=== PATIENT | female | born 1945 | race Caucasian/White ===

== ENCOUNTER 2017-02-02 14:52 | Inpatient (IN) | payer MEDICARE ==
[2017-02-02] MEDS ORDERED: Ondansetron 4 MG Tab.DIS PO ONE (15:29)
[2017-02-02] MEDS ORDERED: HYDROmorphone 1 MG/ML Syringe IM ONE (15:30)
--- NOTE | 2017-02-02 15:58 | EDM.PDOC ---
ED HPI GENERAL MEDICAL PROBLEM - General Chief Complaint: Lower Extremity Injury/Pain Stated Complaint: LT LEG PAIN Time Seen by Provider: 02/02/17 15:20 Source of Information: Reports: Patient, Family History Limitations: Reports: No Limitations - History of Present Illness INITIAL COMMENTS - FREE TEXT/NARRATIVE: Patient presents with complaints of left hip pain. She reports fall from standing after tripping on a cord and landing on her left side on concrete two weeks ago. She reports use of walker or cane to assist with ambulation. Onset Date: 01/19/17 Duration: Week(s): Location: Reports: Other (left hip) Quality: Reports: Ache, Throbbing Severity: Severe Improves with: Reports: Medication, Other (Has tried use of felxeril and naproxen with minimal relief. 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: Musculoskeletal History: Reports: Fracture - Past Surgical History Neurological Surgical History: Reports: C-Spine, Laminectomy, Lumbar Spine Social & Family History - Tobacco Use Smoking Status *Q: Former Smoker Used Tobacco, but Quit: Yes Month Tobacco Last Used: 4 years ago - Caffeine Use Caffeine Use: Reports: Coffee - Recreational Drug Use Recreational Drug Use: No Review of Systems - Review of Systems Review Of Systems: See Below Constitutional: Denies: Chills, Fever, Weakness Eyes: Reports: No Symptoms Ears: Reports: No Symptoms Nose: Reports: No Symptoms Mouth/Throat: Reports: No Symptoms Respiratory: Denies: Shortness of Breath, Wheezing, Cough Cardiovascular: Denies: Chest Pain, Edema, Lightheadedness, Palpitations, Syncope GI/Abdominal: Reports: No Symptoms Genitourinary: Reports: No Symptoms Musculoskeletal: Reports: Joint Pain, Other (Left hip pain, decreased range of motion. ). Denies: Joint Swelling Skin: Reports: No Symptoms Neurological: Denies: Confusion, Headache, Numbness, Tingling, Weakness Psychiatric: Reports: No Symptoms ED EXAM, GENERAL - Physical Exam Exam: See Below Free Text/Narrative:: Thea is an alert, oriented and pleasant 71 year old female presenting with left hip pain. She reports a fall onto concrete from standing two weeks ago after tripping on a cord. She reports she has used a walker or cane to assist with ambulation since fall and developed significant worsening of pain today. Use of naproxen and flexeril help minimally. Exam Limited By: No Limitations General Appearance: Alert, WD/WN, No Apparent Distress Eye Exam: Bilateral Eye: EOMI, PERRL Ears: Normal External Exam, Normal Canal, Hearing Grossly Normal, Normal TMs Ear Exam: Bilateral Ear: Auricle Normal, Canal Normal, TM normal Nose: Normal Inspection, Normal Mucosa, No Blood Throat/Mouth: Normal Inspection, Normal Lips, Normal Oropharynx, Normal Voice, No Airway Compromise Head: Atraumatic, Normocephalic Neck: Normal Inspection, Supple, Non-Tender, Full Range of Motion. No: Lymphadenopathy (R), Lymphadenopathy (L) Respiratory/Chest: No Respiratory Distress, Lungs Clear, Normal Breath Sounds, No Accessory Muscle Use, Chest Non-Tender Cardiovascular: Normal Peripheral Pulses, Regular Rate, Rhythm, No Edema, No Murmur, No Rub Peripheral Pulses: 2+: Radial (L), Radial (R), Dorsalis Pedis (L), Dorsalis Pedis (R) GI/Abdominal: Normal Bowel Sounds, Soft, Non-Tender, No Distention, No Abnormal Bruit Back Exam: Normal Inspection, Full Range of Motion. No: CVA Tenderness (R), CVA Tenderness (L) Extremities: No Pedal Edema, Normal Capillary Refill, Limited Range of Motion, Other (Pain to left hip with palpation or slight manipulation. No shortening of limb. ) Neurological: Alert, Oriented, CN II-XII Intact, Normal Cognition, Normal Reflexes, Other (Patient not able to ambulate, complete external or internal rotation of left hip without significant pain. ) Psychiatric: Normal Affect, Normal Mood Skin Exam: Warm, Dry, Intact, Normal Color, No Rash EKG INTERPRETATION EKG Date: 02/02/17 Time: 16:41 Rhythm: NSR P-Wave: Present QRS: Other (QRSD 120) ST-T: Other UT/PQ Interval: UT 140. QT429 Comparison: NA - No Prior EKG EKG Interpretation Comments: Sinus rhythm with incomplete left bundle branch block. Course - Vital Signs Last Recorded V/S: Last Vital Signs Temp 36.4 C 02/02/17 17:40 Pulse 87 02/02/17 17:40 Resp 16 02/02/17 17:40 BP 138/90 02/02/17 17:40 Pulse Ox 93 L 02/02/17 17:40 - Orders/Labs/Meds Orders: Active Orders 24 hr Category Date Time Status EKG Documentation Completion [RC] ASDIRECTED Care 02/02/17 16:14 Active EKG Documentation Completion [RC] ASDIRECTED Care 02/02/17 16:46 Inactive Pelvis wo Cont [CT] Stat Exams 02/02/17 15:32 Taken UA W/MICROSCOPIC [URIN] Stat Lab 02/02/17 16:46 Uncollected EKG 12 Lead [EK] Routine Ther 02/02/17 16:14 Stop Req EKG 12 Lead [EK] Stat Ther 02/02/17 16:46 Stop Req Medication Orders Acetaminophen (Tylenol) 650 mg PO Q4H PRN PRN Reason: Pain (Mild 1-3)/fever Acetaminophen (Tylenol) 650 mg RECTAL Q4H PRN PRN Reason: Pain (Mild 1-3)/fever Cyclobenzaprine HCl (Flexeril) 10 mg PO TID PRN PRN Reason: Muscle Spasm Docusate Sodium (Colace) 100 mg PO BID NARDA Docusate Sodium (Colace) 100 mg PO DAILY PRN PRN Reason: CONSTIPATION Hydromorphone HCl (Dilaudid) 0.5 mg IVPUSH Q2H PRN PRN Reason: Pain Last Admin: 02/02/17 18:49 Dose: 0.5 mg Lactated Ringer's (Ringers, Lactated) 1,000 mls @ 125 mls/hr IV ASDIRECTED NARDA Magnesium Hydroxide (Milk Of Magnesia) 30 ml PO Q12H PRN PRN Reason: Constipation Ondansetron HCl (Zofran) 4 mg IV Q4H PRN PRN Reason: Nausea/Vomiting Oxycodone HCl (Oxycodone) 5 mg PO Q4H PRN PRN Reason: Pain (moderate 4-6) Polyethylene Glycol (Miralax) 17 gm PO DAILY PRN PRN Reason: Constipation Sodium Chloride (Saline Flush) 10 ml FLUSH ASDIRECTED PRN PRN Reason: Keep Vein Open Meds: Medications Generic Name Dose Route Start Last Admin Trade Name Freq PRN Reason Stop Dose Admin Acetaminophen 650 mg 02/02/17 18:10 Tylenol PO Q4H PRN Pain (Mild 1-3)/fever Acetaminophen 650 mg 02/02/17 18:49 Tylenol RECTAL Q4H PRN Pain (Mild 1-3)/fever Cyclobenzaprine HCl 10 mg 02/02/17 18:10 Flexeril PO TID PRN Muscle Spasm Docusate Sodium 100 mg 02/02/17 21:00 Colace PO BID NARDA Docusate Sodium 100 mg 02/02/17 18:50 Colace PO DAILY PRN CONSTIPATION Hydromorphone HCl 0.5 mg 02/02/17 18:10 02/02/17 18:49 Dilaudid IVPUSH 0.5 mg Q2H PRN Administration Pain Lactated Ringer's 1,000 mls @ 125 mls/hr 02/02/17 18:10 Ringers, Lactated IV ASDIRECTED NARDA Magnesium Hydroxide 30 ml 02/02/17 18:10 Milk Of Magnesia PO Q12H PRN Constipation Ondansetron HCl 4 mg 02/02/17 18:10 Zofran IV Q4H PRN Nausea/Vomiting Oxycodone HCl 5 mg 02/02/17 18:10 Oxycodone PO Q4H PRN Pain (moderate 4-6) Polyethylene Glycol 17 gm 02/02/17 18:10 Miralax PO DAILY PRN Constipation Sodium Chloride 10 ml 02/02/17 18:10 Saline Flush FLUSH ASDIRECTED PRN Keep Vein Open Discontinued Medications Generic Name Dose Route Start Last Admin Trade Name Salma PRN Reason Stop Dose Admin Docusate Sodium 100 mg 02/02/17 18:10 Colace PO BID PRN Constipation Hydromorphone HCl 1 mg 02/02/17 15:30 02/02/17 15:37 Dilaudid IM 02/02/17 15:31 1 mg ONETIME ONE Administration Hydromorphone HCl 1 mg 02/02/17 16:15 02/02/17 16:45 Dilaudid IVPUSH 02/02/17 16:16 1 mg ONETIME ONE Administration Lactated Ringer's 1,000 mls @ 150 mls/hr 02/02/17 16:15 02/02/17 16:44 Ringers, Lactated IV 150 mls/hr ASDIRECTED NARDA Administration Ondansetron HCl 4 mg 02/02/17 15:29 02/02/17 15:36 Zofran Odt PO 02/02/17 15:30 4 mg ONETIME ONE Administration Sodium Chloride 10 ml 02/02/17 16:14 Saline Flush FLUSH ASDIRECTED PRN Keep Vein Open - Radiology Interpretation Free Text/Narrative:: Noted left - Re-Assessments/Exams Free Text/Narrative Re-Assessment/Exam: 02/02/17 16:23 Patient case discussed with Dr. Bo Hoyt. Patient will be admitted, surgical repair of left hip fracture tomorrow. She will be NPO after midnight tonight. Tramadol 100mg PO every 6 hours PRN pain. Morphine sulfate 1mg IV every 2 hours for break through pain. Non-weight bearing. Free Text/Narrative Re-Assessment/Exam: 02/02/17 16:[address] Deras of patient status. Free Text/Narrative Re-Assessment/Exam: 02/02/17 17:43 Report to Vannesa VAUGHAN, all questions answered. Patient to room 202. Departure - Departure Time of Disposition: 18:00 Disposition: Admitted As Inpatient 65 Clinical Impression: Fracture of neck of femur, hip - Discharge Information - My Orders Last 24 Hours: My Active Orders 02/02/17 15:32 Pelvis wo Cont [CT] Stat 02/02/17 16:14 EKG Documentation Completion [RC] ASDIRECTED EKG 12 Lead [EK] Routine - Assessment/Plan Last 24 Hours: My Active Orders 02/02/17 15:32 Pelvis wo Cont [CT] Stat 02/02/17 16:14 EKG Documentation Completion [RC] ASDIRECTED EKG 12 Lead [EK] Routine
[2017-02-02] MEDS ORDERED: Sodium Chloride 0.9% 10 ML Syringe FLUSH PRN ×2 (16:14→18:10)
[2017-02-02] MEDS ORDERED: Lactated Ringers 1,000 ML IV SCH (16:15)
[2017-02-02] MEDS ORDERED: HYDROmorphone 1 MG/ML Syringe IVPUSH ONE (16:15)
[2017-02-02] MEDS ORDERED: oxyCODONE 5 MG Tab PO PRN (18:10)
[2017-02-02] MEDS ORDERED: Polyethylene Glycol 3350 Powder 17 GM Packet PO PRN (18:10)
[2017-02-02] MEDS ORDERED: Docusate Sodium 100 MG Cap PO PRN ×2 (18:10→18:50)
[2017-02-02] MEDS ORDERED: Magnesium Hydroxide 400 MG/5 ML Susp 30 ML Cup PO PRN (18:10)
[2017-02-02] MEDS: HYDROmorphone 0.5 MG/0.5 ML Syringe IVPUSH PRN ×2 (18:49→23:12)
[2017-02-02] MEDS ORDERED: Acetaminophen 650 MG Supp RECTAL PRN (18:49)
[2017-02-02] MEDS ORDERED: Calcium Carbonate 500 MG Tab.Chew PO PRN (18:51)
[2017-02-02] MEDS ORDERED: Aluminum Hydroxide/Magnesium Hydroxide/Simethicone Susp 30 ML Cup PO PRN (18:51)
--- NOTE | 2017-02-02 21:19 | PCM.HP ---
H&P History of Present Illness - General Admit Problem/Dx: Admission Diagnosis/Problem Admission Diagnosis/Problem Hip fracture requiring operative repair Source of Information: Patient History Limitations: Reports: No Limitations - History of Present Illness Initial Comments - Free Text/Narative: Thea is an alert, oriented and pleasant 71 year old female presenting with left hip pain. She reports a fall onto concrete from standing two weeks ago after tripping on a cord. She reports she has used a walker or cane to assist with ambulation since fall and developed significant worsening of pain today. Use of naproxen and flexeril help minimally. CT abdomen Pelvis; fracture of neck of femur, hip Patient case discussed with Dr. Bo Hoyt. Patient will be admitted, surgical repair of left hip fracture tomorrow. She will be NPO after midnight tonight. Tramadol 100mg PO every 6 hours PRN pain. Morphine sulfate 1mg IV every 2 hours for break through pain. Non-weight bearing. Onset of Symptoms: Reports: Sudden, Gradual (2 weeks since fall with worsen leg/ pelvis pain) Duration of Symptoms: Reports: Day(s): (worse left hip pain today), Week(s): (2 weeks ago) Location: Reports: Pelvis (left hip), Lower Extremity, Left Quality: Reports: Sharp, Stabbing Severity: Severe Improves with: Reports: Rest Worsens with: Reports: Movement Context: Reports: Trauma (fall ) Associated Symptoms: Reports: Other (not sleeping well since injury. 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: Musculoskeletal History: Reports: Fracture - Past Surgical History Neurological Surgical History: Reports: C-Spine, Laminectomy, Lumbar Spine Social & Family History - Family History Family Medical History: Noncontributory - Tobacco Use Smoking Status *Q: Former Smoker Years of Tobacco use: 50 Used Tobacco, but Quit: Yes Month Tobacco Last Used: 4 years ago Second Hand Smoke Exposure: Yes - Caffeine Use Caffeine Use: Reports: Coffee Caffeine Use Comment: 1-1.5 cups/day - Alcohol Use Days Per Week of Alcohol Use: 7 Number of Drinks Per Day: 2 Total Drinks Per Week: 14 Date of Last Drink: 01/30/17 Time of Last Drink: 20:00 - Recreational Drug Use Recreational Drug Use: No H&P Review of Systems - Review of Systems: Review Of Systems: See Below General: Reports: Fatigue, Other (left hip and leg leg pain) HEENT: Reports: No Symptoms Pulmonary: Reports: No Symptoms Cardiovascular: Reports: No Symptoms Gastrointestinal: Reports: No Symptoms Genitourinary: Reports: No Symptoms Musculoskeletal: Reports: Back Pain (chronic back pain), Leg Pain (left) Skin: Reports: No Symptoms Psychiatric: Reports: No Symptoms Neurological: Reports: No Symptoms Hematologic/Lymphatic: Reports: No Symptoms Immunologic: Reports: No Symptoms Exam - Exam Exam: See Below - Vital Signs Vital Signs: Last Vital Signs Temp 36.6 C 02/02/17 19:00 Pulse 75 02/02/17 19:00 Resp 16 02/02/17 19:00 BP 124/75 02/02/17 19:00 Pulse Ox 97 02/02/17 19:00 Weight: 61.235 kg - Exam General: Alert, Oriented, Cooperative HEENT: PERRLA, Hearing Intact, Mucosa Moist & [place], Nares Patent, Normal Nasal Septum, Posterior Pharynx Clear, Conjunctiva Clear, EOMI, EACs Clear, TMs Clear Neck: Supple, Trachea Midline, 2 Lungs: Clear to Auscultation, Normal Respiratory Effort Cardiovascular: Regular Rate, Regular Rhythm GI/Abdominal Exam: Normal Bowel Sounds, Soft, Tender (left side of abdomen and pelvis), Other (left lower pelvis pain) (Female) Exam: Deferred Rectal (Female) Exam: Deferred Back Exam: Normal Inspection, Other (chronic low back pain) Extremities: No Pedal Edema, Normal Capillary Refill, Leg Pain (left), Limited Range of Motion (left leg due to hip fracture) Peripheral Pulses: 2+: Dorsalis Pedis (L), Dorsalis Pedis (R) Skin: Warm, Dry, Intact Neurological: Strength Equal Bilateral, Normal Speech, Normal Tone Neuro Extensive - Mental Status: Alert, Oriented x3, Normal Mood/Affect, Normal Cognition, Memory Intact Psychiatric: Alert, Normal Affect, Normal Mood - Patient Data Lab Results Last 24 hrs: Laboratory Results - last 24 hr 0802/02/17 02/02/17 Range/Units 16:51 16:51 16:51 WBC 8.7 (4.5-11.0) K/uL RBC 4.59 (3.30-5.50) M/uL Hgb 13.7 (12.0-15.0) g/dL Hct 39.9 (36.0-48.0) % MCV 87 (80-98) fL MCH 30 (27-31) pg MCHC 34 (32-36) % Plt Count 386 (150-400) K/uL Neut % (Auto) 67 H (36-66) % Lymph % (Auto) 20 L (24-44) % [place] % (Auto) 11 H (2-6) % Eos % (Auto) 1 L (2-4) % Baso % (Auto) 1 (0-1) % Sodium 141 (140-148) mmol/L Potassium 3.6 (3.6-5.2) mmol/L Chloride 106 (100-108) mmol/L Carbon Dioxide 25 (21-32) mmol/L Anion Gap 10.1 (5.0-14.0) mmol/L BUN 11 (7-18) mg/dL Creatinine 0.8 (0.6-1.0) mg/dL Est Cr Clr Drug Dosing 54.89 mL/min Estimated GFR (MDRD) > 60 (>60) Glucose 91 (74-106) mg/dL Calcium 8.9 (8.5-10.1) mg/dL Magnesium 2.0 (1.8-2.4) mg/dL Total Bilirubin 0.4 (0.2-1.0) mg/dL AST 15 (15-37) U/L ALT 18 (12-78) U/L Alkaline Phosphatase 60 (46-116) U/L Total Protein 7.0 (6.4-8.2) g/dL Albumin 3.8 (3.4-5.0) g/dL Globulin 3.2 (2.3-3.5) g/dL Albumin/Globulin Ratio 1.2 (1.2-2.2) Urine Color Urine Appearance Urine pH (4.5-8.0) Ur Specific [place] (1.008-1.030) Urine Protein (NEGATIVE) mg/dL Urine Glucose (UA) (NEGATIVE) mg/dL Urine Ketones (NEGATIVE) mg/dL Urine Occult Blood (NEGATIVE) Urine Nitrite (NEGATIVE) Urine Bilirubin (NEGATIVE) Urine Urobilinogen (NORMAL) mg/dL Ur Leukocyte Esterase (NEGATIVE) Urine RBC (0-5) Urine WBC (0-5) Ur Epithelial Cells Amorphous Sediment Urine Bacteria Urine Mucus 02/02/17 Range/Units 19:21 WBC (4.5-11.0) K/uL RBC (3.30-5.50) M/uL Hgb (12.0-15.0) g/dL Hct (36.0-48.0) % MCV (80-98) fL MCH (27-31) pg MCHC (32-36) % Plt Count (150-400) K/uL Neut % (Auto) (36-66) % Lymph % (Auto) (24-44) % [place] % (Auto) (2-6) % Eos % (Auto) (2-4) % Baso % (Auto) (0-1) % Sodium (140-148) mmol/L Potassium (3.6-5.2) mmol/L Chloride (100-108) mmol/L Carbon Dioxide (21-32) mmol/L Anion Gap (5.0-14.0) mmol/L BUN (7-18) mg/dL Creatinine (0.6-1.0) mg/dL Est Cr Clr Drug Dosing mL/min Estimated GFR (MDRD) (>60) Glucose (74-106) mg/dL Calcium (8.5-10.1) mg/dL Magnesium (1.8-2.4) mg/dL Total Bilirubin (0.2-1.0) mg/dL AST (15-37) U/L ALT (12-78) U/L Alkaline Phosphatase (46-116) U/L Total Protein (6.4-8.2) g/dL Albumin (3.4-5.0) g/dL Globulin (2.3-3.5) g/dL Albumin/Globulin Ratio (1.2-2.2) Urine Color Yellow Urine Appearance Clear Urine pH 6.5 (4.5-8.0) Ur Specific [place] 1.010 (1.008-1.030) Urine Protein Negative (NEGATIVE) mg/dL Urine Glucose (UA) Normal (NEGATIVE) mg/dL Urine Ketones 50 H (NEGATIVE) mg/dL Urine Occult Blood Negative (NEGATIVE) Urine Nitrite Negative (NEGATIVE) Urine Bilirubin Negative (NEGATIVE) Urine Urobilinogen Normal (NORMAL) mg/dL Ur Leukocyte Esterase Negative (NEGATIVE) Urine RBC 0-5 (0-5) Urine WBC 0-5 (0-5) Ur Epithelial Cells Few Amorphous Sediment Not seen Urine Bacteria Not seen Urine Mucus Not seen Result Diagrams: 02/02/17 16:51 02/02/17 16:51 *Q Meaningful Use (ADM) - VTE *Q VTE Criteria *Q: VTE Pharmacological Contraindications *Q: Patient Scheduled Surgery - Stroke *Q Stroke Criteria *Q: - AMI *Q AMI Criteria *Q: - Problem List (1) Fracture of neck of femur, hip SNOMED Code(s): 9433913 ICD Code: S72.009A - FRACTURE OF UNSP PART OF NECK OF UNSP FEMUR, INIT Status: Acute Priority: High Current Visit: Yes Problem List Initiated/Reviewed/Updated: Yes Orders Last 24hrs: Active Orders 24 hr Category Date Time Status Patient Status [ADT] Routine ADT 02/02/17 18:10 Active Bedrest Bedside Commode [RC] ASDIRECTED Care 02/02/17 18:10 Active Intake and Output [RC] QSHIFT Care 02/02/17 18:10 Active Notify Provider Consults [RC] ASDIRECTED Care 02/02/17 18:10 Active Notify Provider Vital Signs [RC] ASDIRECTED Care 02/02/17 18:10 Active Oxygen Therapy [RC] PRN Care 02/02/17 18:10 Active Peripheral IV Care [RC] Q12H Care 02/02/17 18:10 Active VTE/DVT Education [RC] Per Unit Routine Care 02/02/17 18:10 Active Vital Signs [RC] Q4H Care 02/02/17 18:10 Active Consult to Physician [CONS] Routine Cons 02/02/17 18:10 Ordered Nothing per Oral After Midnight Diet [DIET] Diet 02/03/17 Breakfast Active Regular Diet [DIET] Diet 02/02/17 Dinner Active Acetaminophen [Tylenol] Med 02/02/17 18:10 Active 650 mg PO Q4H PRN Acetaminophen [Tylenol] Med 02/02/17 18:49 Active 650 mg RECTAL Q4H PRN Alum Hydrox/Mag Hydrox/Simeth [Mag-Al Plus] Med 02/02/17 18:51 Active 30 ml PO Q4H PRN Calcium Carbonate [Tums] Med 02/02/17 18:51 Active 500 - 1,000 mg PO Q4H PRN Docusate Sodium [Colace] Med 02/02/17 21:00 Active 100 mg PO BID Docusate Sodium [Colace] Med 02/02/17 18:50 Active 100 mg PO DAILY PRN HYDROmorphone [Dilaudid] Med 02/02/17 18:10 Active 0.5 mg IVPUSH Q2H PRN Lactated Ringers [Ringers, Lactated] 1,000 ml Med 02/02/17 18:10 Active IV ASDIRECTED Magnesium Hydroxide [Milk of Magnesia] Med 02/02/17 18:10 Active 30 ml PO Q12H PRN Morphine Med 02/02/17 18:53 Active 1 mg IV Q2H PRN Ondansetron [Zofran] Med 02/02/17 18:10 Active 4 mg IV Q4H PRN Polyethylene Glycol 3350 [MiraLAX] Med 02/02/17 18:10 Active 17 gm PO DAILY PRN Sodium Chloride 0.9% [Saline Flush] Med 02/02/17 18:10 Active 10 ml FLUSH ASDIRECTED PRN oxyCODONE Med 02/02/17 18:10 Active 5 mg PO Q4H PRN traMADol [Ultram] Med 02/02/17 18:52 Active 100 mg PO Q6H PRN Peripheral IV Insertion Adult [OM.PC] Routine Oth 02/02/17 18:10 Ordered Sequential Compression Device [OM.PC] Per Unit Routine Oth 02/02/17 18:10 Ordered VTE Pharmacological Contraindications [AST] Per Unit Oth 02/02/17 18:10 Ordered Routine Resuscitation Status Routine Resus Stat 02/02/17 16:49 Ordered Medication Orders Acetaminophen (Tylenol) 650 mg PO Q4H PRN PRN Reason: Pain (Mild 1-3)/fever Acetaminophen (Tylenol) 650 mg RECTAL Q4H PRN PRN Reason: Pain (Mild 1-3)/fever Al Hydroxide/Mg Hydroxide (Mag-Al Plus) 30 ml PO Q4H PRN PRN Reason: DYSPEPSIA Calcium Carbonate/Glycine (Tums) 500 - 1,000 mg PO Q4H PRN PRN Reason: DYSPEPSIA Cyclobenzaprine HCl (Flexeril) 10 mg PO TID PRN PRN Reason: Muscle Spasm Docusate Sodium (Colace) 100 mg PO BID NARDA Docusate Sodium (Colace) 100 mg PO DAILY PRN PRN Reason: CONSTIPATION Hydromorphone HCl (Dilaudid) 0.5 mg IVPUSH Q2H PRN PRN Reason: Pain Last Admin: 02/02/17 18:49 Dose: 0.5 mg Lactated Ringer's (Ringers, Lactated) 1,000 mls @ 125 mls/hr IV ASDIRECTED NARDA Magnesium Hydroxide (Milk Of Magnesia) 30 ml PO Q12H PRN PRN Reason: Constipation Morphine Sulfate (Morphine) 1 mg IV Q2H PRN PRN Reason: BREAKTHROUGH PAIN Ondansetron HCl (Zofran) 4 mg IV Q4H PRN PRN Reason: Nausea/Vomiting Oxycodone HCl (Oxycodone) 5 mg PO Q4H PRN PRN Reason: Pain (moderate 4-6) Polyethylene Glycol (Miralax) 17 gm PO DAILY PRN PRN Reason: Constipation Sodium Chloride (Saline Flush) 10 ml FLUSH ASDIRECTED PRN PRN Reason: Keep Vein Open Tramadol HCl (Ultram) 100 mg PO Q6H PRN PRN Reason: PAIN Assessment/Plan Comment:: ASSSESSMENT / PLAN Thea is an alert, oriented and pleasant 71 year old female presenting with left hip pain. She reports a fall onto concrete from standing two weeks ago after tripping on a cord. She reports she has used a walker or cane to assist with ambulation since fall and developed significant worsening of pain today. Use of naproxen and flexeril help minimally. CT abdomen Pelvis; fracture of neck of femur, hip Patient case discussed with Dr. Bo Hoyt. Patient will be admitted, surgical repair of left hip fracture tomorrow. Plan: Fracture of Neck of femur; left hip -Admit to [address] [place] [address] -IV Fluids for rehydration LR at 125 mL per hour -Advise to notify nurses of any pain or other symptoms -NPO after midnight tonight. -medication ordered for pain control -bedrest; Non-weight bearing. -Surgery scheduled in am. Maintenance issues -Orders home meds: -Nutrition: regular diet, NPO after midnight -Dolan catheter not indicated at this time -DVT: SCD -PPI; IV Protonix 40mg daily -consult OT for discharge planning -consult PT for post-op orthopedic left hip fracture with surgical repair. CODE STATUS: FULL CODE Admission status: Admit to [address] [place] [address] Admission justification. This patient will be admitted for inpatient services and is medically appropriate meeting medical necessity for inpatient admission as outlined in my documentation. I reasonably expect the patient will require inpatient services that span. Time over 2 midnights. I reasonably expect this patient to be discharged or transferred within 96 hours after admission to the [facility]. Disposition; home Primary care provider: not established Surgeon; Dr. Blayne Hoyt Hospitalist: Dr. Deras
[2017-02-02] MEDS: Docusate Sodium 100 MG Cap PO SCH ×2 (21:40→23:12)
[2017-02-03] MEDS: Lactated Ringers 1,000 ML IV SCH ×3 (01:06→19:30)
[2017-02-03] MEDS: HYDROmorphone 0.5 MG/0.5 ML Syringe IVPUSH PRN ×2 (03:43→14:15)
[2017-02-03] MEDS: Morphine 2 MG/ML Syringe IV PRN ×3 (05:43→15:03)
[2017-02-03] MEDS ORDERED: Povidone-Iodine 10% Soln 118.25 ML Bottle ONE ×2 (09:32→09:33)
[2017-02-03] MEDS ORDERED: Bupivacaine 0.5%/EPINEPHrine 1:200,000 50 ML MDV ONE (09:32)
[2017-02-03] MEDS ORDERED: Gentamicin 40 MG/ML 2 ML Vial ONE (09:32)
--- NOTE | 2017-02-03 09:33 | PCM.CONS ---
H&P History of Present Illness - General Admit Problem/Dx: Admission Diagnosis/Problem healthy 71 yo female tripped on cord two weeks ago fell on cement. increasing pain with ambulation. started to ambulate with cane. used flexeril but did not help. no prior injury to left hip. Source of Information: Patient, Provider History Limitations: Reports: No Limitations - History of Present Illness Onset of Symptoms: Reports: Gradual Duration of Symptoms: Reports: Week(s): Location: Reports: Lower Extremity, Left Quality: Reports: Burning, Stabbing, Throbbing Improves with: Reports: Immobilization Worsens with: Reports: Movement Associated Symptoms: Reports: No Other Symptoms Left Leg Pain Score (Numeric/FACES): 5 - Related Data Allergies/Adverse Reactions: Allergies Allergy/AdvReac Type Severity Reaction Status Date / Time No Known Allergies Allergy Verified 02/02/17 15:20 Home Medications: Home Meds Cyclobenzaprine [Flexeril] 10 mg PO TID PRN 02/02/17 [History] Past Medical History [employer] History: Reports: Musculoskeletal History: Reports: Fracture - Past Surgical History Neurological Surgical History: Reports: C-Spine, Laminectomy, Lumbar Spine Social & Family History - Family History Family Medical History: Noncontributory - Tobacco Use Smoking Status *Q: Former Smoker Years of Tobacco use: 50 Used Tobacco, but Quit: Yes Month Tobacco Last Used: 4 years ago Second Hand Smoke Exposure: Yes - Caffeine Use Caffeine Use: Reports: Coffee Caffeine Use Comment: 1-1.5 cups/day - Alcohol Use Days Per Week of Alcohol Use: 7 Number of Drinks Per Day: 2 Total Drinks Per Week: 14 Date of Last Drink: 01/30/17 Time of Last Drink: 20:00 - Recreational Drug Use Recreational Drug Use: No H&P Review of Systems - Review of Systems: Review Of Systems: See Below General: Reports: No Symptoms HEENT: Reports: No Symptoms Pulmonary: Reports: No Symptoms Cardiovascular: Reports: No Symptoms Gastrointestinal: Reports: No Symptoms Genitourinary: Reports: No Symptoms Musculoskeletal: Reports: Leg Pain, Joint Pain Skin: Reports: No Symptoms Psychiatric: Reports: No Symptoms Neurological: Reports: No Symptoms Hematologic/Lymphatic: Reports: No Symptoms Immunologic: Reports: No Symptoms Exam - Exam Exam: See Below - Vital Signs Vital Signs: Last Vital Signs Temp 98.2 F 02/03/17 07:53 Pulse 70 02/03/17 07:53 Resp 16 02/03/17 07:53 BP 118/68 02/03/17 07:53 Pulse Ox 96 02/03/17 07:53 Weight: 135 lb - Exam General: Alert, Oriented HEENT: PERRLA, Conjunctiva Clear, EACs Clear, EOMI, Hearing Intact, Mucosa Moist & [place], Pupils Equal, Pupils Reactive Neck: Supple, Trachea Midline Extremities: No Pedal Edema, Normal Capillary Refill, Leg Pain, Limited Range of Motion Peripheral Pulses: 2+: Dorsalis Pedis (L), Dorsalis Pedis (R) Skin: Warm, Dry, Intact Neurological: Cranial Nerves Intact Neuro Extensive - Mental Status: Alert, Oriented x3, Normal Mood/Affect, Normal Cognition, Memory Intact Psychiatric: Alert, Normal Affect, Normal Mood Physical Exam Comments:: LLE: skin warm, dry intact. [employer] MECH[employer]IC<2s. Pulses 2/4. Compartments soft. motor and sensory exam grossly intact distally. good rom of ankle. pain with hip/knee rom in left hip. - Patient Data Lab Results Last 24 hrs: Laboratory Results - last 24 hr 02/02/17 02/02/17 02/02/17 Range/Units 16:51 16:51 16:51 WBC 8.7 (4.5-11.0) K/uL RBC 4.59 (3.30-5.50) M/uL Hgb 13.7 (12.0-15.0) g/dL Hct 39.9 (36.0-48.0) % MCV 87 (80-98) fL MCH 30 (27-31) pg MCHC 34 (32-36) % Plt Count 386 (150-400) K/uL Neut % (Auto) 67 H (36-66) % Lymph % (Auto) 20 L (24-44) % Miller % (Auto) 11 H (2-6) % Eos % (Auto) 1 L (2-4) % Baso % (Auto) 1 (0-1) % Sodium 141 (140-148) mmol/L Potassium 3.6 (3.6-5.2) mmol/L Chloride 106 (100-108) mmol/L Carbon Dioxide 25 (21-32) mmol/L Anion Gap 10.1 (5.0-14.0) mmol/L BUN 11 (7-18) mg/dL Creatinine 0.8 (0.6-1.0) mg/dL Est Cr Clr Drug Dosing 54.89 mL/min Estimated GFR (MDRD) > 60 (>60) Glucose 91 (74-106) mg/dL Calcium 8.9 (8.5-10.1) mg/dL Magnesium 2.0 (1.8-2.4) mg/dL Total Bilirubin 0.4 (0.2-1.0) mg/dL AST 15 (15-37) U/L ALT 18 (12-78) U/L Alkaline Phosphatase 60 (46-116) U/L Total Protein 7.0 (6.4-8.2) g/dL Albumin 3.8 (3.4-5.0) g/dL Globulin 3.2 (2.3-3.5) g/dL Albumin/Globulin Ratio 1.2 (1.2-2.2) Urine Color Urine Appearance Urine pH (4.5-8.0) Ur Specific [place] (1.008-1.030) Urine Protein (NEGATIVE) mg/dL Urine Glucose (UA) (NEGATIVE) mg/dL Urine Ketones (NEGATIVE) mg/dL Urine Occult Blood (NEGATIVE) Urine Nitrite (NEGATIVE) Urine Bilirubin (NEGATIVE) Urine Urobilinogen (NORMAL) mg/dL Ur Leukocyte Esterase (NEGATIVE) Urine RBC (0-5) Urine WBC (0-5) Ur Epithelial Cells Amorphous Sediment Urine Bacteria Urine Mucus 02/02/17 Range/Units 19:21 WBC (4.5-11.0) K/uL RBC (3.30-5.50) M/uL Hgb (12.0-15.0) g/dL Hct (36.0-48.0) % MCV (80-98) fL MCH (27-31) pg MCHC (32-36) % Plt Count (150-400) K/uL Neut % (Auto) (36-66) % Lymph % (Auto) (24-44) % Miller % (Auto) (2-6) % Eos % (Auto) (2-4) % Baso % (Auto) (0-1) % Sodium (140-148) mmol/L Potassium (3.6-5.2) mmol/L Chloride (100-108) mmol/L Carbon Dioxide (21-32) mmol/L Anion Gap (5.0-14.0) mmol/L BUN (7-18) mg/dL Creatinine (0.6-1.0) mg/dL Est Cr Clr Drug Dosing mL/min Estimated GFR (MDRD) (>60) Glucose (74-106) mg/dL Calcium (8.5-10.1) mg/dL Magnesium (1.8-2.4) mg/dL Total Bilirubin (0.2-1.0) mg/dL AST (15-37) U/L ALT (12-78) U/L Alkaline Phosphatase (46-116) U/L Total Protein (6.4-8.2) g/dL Albumin (3.4-5.0) g/dL Globulin (2.3-3.5) g/dL Albumin/Globulin Ratio (1.2-2.2) Urine Color Yellow Urine Appearance Clear Urine pH 6.5 (4.5-8.0) Ur Specific [place] 1.010 (1.008-1.030) Urine Protein Negative (NEGATIVE) mg/dL Urine Glucose (UA) Normal (NEGATIVE) mg/dL Urine Ketones 50 H (NEGATIVE) mg/dL Urine Occult Blood Negative (NEGATIVE) Urine Nitrite Negative (NEGATIVE) Urine Bilirubin Negative (NEGATIVE) Urine Urobilinogen Normal (NORMAL) mg/dL Ur Leukocyte Esterase Negative (NEGATIVE) Urine RBC 0-5 (0-5) Urine WBC 0-5 (0-5) Ur Epithelial Cells Few Amorphous Sediment Not seen Urine Bacteria Not seen Urine Mucus Not seen Result Diagrams: 02/02/17 16:51 02/02/17 16:51 Consult PN Assessment/Plan Problem List Initiated/Reviewed/Updated: Yes My Orders Last 24 Hours: My Active Orders 02/02/17 18:51 Alum Hydrox/Mag Hydrox/Simeth [Mag-Al Plus] 30 ml PO Q4H PRN Calcium Carbonate [Tums] 500 - 1,000 mg PO Q4H PRN 02/02/17 18:52 traMADol [Ultram] 100 mg PO Q6H PRN 02/02/17 18:53 Morphine 1 mg IV Q2H PRN 02/03/17 10:00 ceFAZolin [Ancef] 1 gm Premix Bag 1 bag IV ONETIME Plan: imaging: CT pelvis shows left hip subcapital impacted fracture. A: 71 yo female left femoral neck fracture, closed P: To OR 10 am 02/03 for left hip hemiarthroplasty. Risks and benefits discussed with patient. Informed consent obtained. 3 week follow up in clinic for staple removal. ambulate as tolerated.
[2017-02-03] MEDS ORDERED: fentaNYL 100 MCG/2 ML SDV ONE (09:35)
[2017-02-03] MEDS ORDERED: Midazolam 1 MG/ML 2 ML SDV ONE ×2 (09:35→10:37)
[2017-02-03] MEDS ORDERED: Propofol 200 MG/20 ML SDV ONE ×2 (09:35→11:44)
[2017-02-03] MEDS: ceFAZolin 1 GM in Premix Bag 1 BAG IV ONE ×2 (10:30→13:12)
[2017-02-03] MEDS: Docusate Sodium 100 MG Cap PO SCH ×2 (13:26→20:56)
--- NOTE | 2017-02-03 13:28 | OR ---
DATE OF PROCEDURE: 02/03/2017 PREOPERATIVE DIAGNOSIS: Left hip subcapital femoral neck fracture. POSTOPERATIVE DIAGNOSES: 1. Left hip subcapital femoral neck fracture. 2. Left hip osteoarthritis. ANESTHESIA: Spinal plus conscious sedation. FLUID: Lactated Ringer solution. ESTIMATED BLOOD LOSS: 100 mL. COMPLICATIONS: None. SPECIMEN: None. DISCHARGE DISPOSITION: Stable to PACU. INSTRUMENTATION: Biomet G7 acetabular shell, 48 mm liner size C with 25 mm x 6.5 mm and 15 mm x 6.5 mm screws, 32 mm G7 acetabular liner size C with E1 Antioxidant, a 12 x 144 mm standard offset type 1 taper, cementless porous-coated femoral stem, and Biolox option taper adapter +3 neck and Biolox Delta option ceramic head 32 mm with a 16 to 18 taper. INDICATIONS FOR THE PROCEDURE: The patient was seen yesterday in the ER. She had been having pain for two weeks after tripping over a cord. She was found to have a left subcapital femoral neck fracture on CT. She was then admitted to the hospitalist service. I spoke with her this morning. Risks and benefits of the procedure were explained to the patient, and informed consent was obtained. PROCEDURE: Left total hip arthroplasty. DETAILS OF PROCEDURE: The patient was seen in the hospital. Her operative site was marked. She was brought to the operative suite by Anesthesia staff where spinal anesthesia was administered. She was placed in a right lateral recumbent position on a pegboard with an axillary roll. All extremities found to be well padded. The right lower extremity was then prepped and draped in a sterile manner. Time-out was called identifying the correct patient, correct procedure, the correct site, and antibiotics had been with appropriate period of time. An incision was made approximately 7 cm proximal to the greater trochanter down about 5 cm distal to the level of the lesser trochanter and carried down to the deep fascia. Bleeding was controlled with Bovie electrocautery. Cerebellar were used for retraction. The deep fascia was incised with the Bovie electrocautery unit and the IT band was felt to be quite tight. I then used a Bovie electrocautery for the dissection down over the lesser trochanter and then preserving a cuff of tendon of the gluteus minimus and inferior portion of gluteus medius back to the greater trochanter. I then tried to dislocate the hip but the fracture was intact, so I made 2 saw cuts, removed a part of the neck, and then using a corkscrew removed the remainder of the head, which measured 43 mm. I then placed some deep retractors and visualized the acetabulum. It was obvious to me that there was a significant acetabular wear as well as a defect where the fovea was. So, I elected to proceed with total hip arthroplasty. While awaiting for those instruments, I then broached up to a #12 femur. We then had our instruments available. I then reamed at 1st with a small reamer and then expanded up to 47. I then trailed this to make sure that the cup was seated correctly and this was very good. We then copiously irrigated with saline and placed our acetabular shell. I then drilled two holes and placed a 25 mm and 50- mm screw and then replaced the central cap. We then irrigated with saline and placed our acetabular liner and tapped this into place, and then I ensured with a Mat that was in good position and not loose. We then focused on our femur. I did go up to 13 but it seemed a little bit too big, so we went back and broached with a 12 and then trial reduced. At that time, I thought we could do a 32 mm standard offset 0 neck. So, we copiously irrigated with saline and then placed our femoral component. I then trialed again with a +3, which I thought would provide a little bit better tension on the hip abductors and we thus had good stability throughout range of motion, so we then took out our trial, irrigated with saline and then placed our +3, 32 mm head. This provided excellent stability throughout range of motion. We then irrigated with saline again. I then placed Ethibond sutures to close the capsule and then used #2 STRATAFIX to close the deep fascia and IT band, followed by #2 STRATAFIX to close the deep subcutaneous layer rather followed by skin santiago, followed by a sterile dressing. The patient was then rolled onto her hospital bed and taken to the PACU in stable condition. Blayne Hoyt DO /[id number]
[2017-02-03] MEDS: Ondansetron 4 MG/2 ML SDV IV PRN ×2 (14:48→20:56)
[2017-02-03] MEDS: Cyclobenzaprine 10 MG Tab PO PRN (15:03)
--- NOTE | 2017-02-03 15:04 | PCM.PN ---
- General Info Date of Service: 02/03/17 Functional Status: Reports: Pain Controlled, Tolerating Diet - Review of Systems General: Reports: Weakness. Denies: Fever, Chills Cardiovascular: Reports: No Symptoms Gastrointestinal: Reports: No Symptoms Genitourinary: Reports: No Symptoms Musculoskeletal: Reports: Leg Pain, Joint Pain Systems Review Comment:: Ms. Bernabe is a 71-year-old woman who was admitted through the emergency department last night with a subacute left hip fracture. She had fallen approximately 2 weeks ago and after that noted progressive pain in her left hip. CT scan obtained in the emergency department yesterday showed evidence of a subcapsular fracture on the left, she was admitted given IV fluids for hydration and pain medication as needed. This morning she was seen and evaluated by Dr. Narinder Hoyt and underwent surgical repair of the fracture. She is doing well in the immediate postoperative period, denies symptoms of chest pain, shortness of breath, nausea or vomiting and reports that her pain is well controlled. - Patient Data Vitals - Most Recent: Last Vital Signs Temp 96.1 F 02/03/17 14:06 Pulse 94 02/03/17 14:27 Resp 16 02/03/17 13:14 BP 135/90 02/03/17 14:27 Pulse Ox 94 L 02/03/17 14:27 Weight - Most Recent: 135 lb I&O - Last 24 Hours: Intake & Output 02/03/17 02/03/17 02/03/17 06:59 14:59 22:59 Intake Total 1960 1150 Output Total 600 650 Balance 1360 500 Lab Results Last 24 Hours: Laboratory Results - last 24 hr 02/02/17 02/02/17 02/02/17 Range/Units 16:51 16:51 16:51 WBC 8.7 (4.5-11.0) K/uL RBC 4.59 (3.30-5.50) M/uL Hgb 13.7 (12.0-15.0) g/dL Hct 39.9 (36.0-48.0) % MCV 87 (80-98) fL MCH 30 (27-31) pg MCHC 34 (32-36) % Plt Count 386 (150-400) K/uL Neut % (Auto) 67 H (36-66) % Lymph % (Auto) 20 L (24-44) % [place] % (Auto) 11 H (2-6) % Eos % (Auto) 1 L (2-4) % Baso % (Auto) 1 (0-1) % Sodium 141 (140-148) mmol/L Potassium 3.6 (3.6-5.2) mmol/L Chloride 106 (100-108) mmol/L Carbon Dioxide 25 (21-32) mmol/L Anion Gap 10.1 (5.0-14.0) mmol/L BUN 11 (7-18) mg/dL Creatinine 0.8 (0.6-1.0) mg/dL Est Cr Clr Drug Dosing 54.89 mL/min Estimated GFR (MDRD) > 60 (>60) Glucose 91 (74-106) mg/dL Calcium 8.9 (8.5-10.1) mg/dL Magnesium 2.0 (1.8-2.4) mg/dL Total Bilirubin 0.4 (0.2-1.0) mg/dL AST 15 (15-37) U/L ALT 18 (12-78) U/L Alkaline Phosphatase 60 (46-116) U/L Total Protein 7.0 (6.4-8.2) g/dL Albumin 3.8 (3.4-5.0) g/dL Globulin 3.2 (2.3-3.5) g/dL Albumin/Globulin Ratio 1.2 (1.2-2.2) Urine Color Urine Appearance Urine pH (4.5-8.0) Ur Specific [place] (1.008-1.030) Urine Protein (NEGATIVE) mg/dL Urine Glucose (UA) (NEGATIVE) mg/dL Urine Ketones (NEGATIVE) mg/dL Urine Occult Blood (NEGATIVE) Urine Nitrite (NEGATIVE) Urine Bilirubin (NEGATIVE) Urine Urobilinogen (NORMAL) mg/dL Ur Leukocyte Esterase (NEGATIVE) Urine RBC (0-5) Urine WBC (0-5) Ur Epithelial Cells Amorphous Sediment Urine Bacteria Urine Mucus 02/02/17 Range/Units 19:21 WBC (4.5-11.0) K/uL RBC (3.30-5.50) M/uL Hgb (12.0-15.0) g/dL Hct (36.0-48.0) % MCV (80-98) fL MCH (27-31) pg MCHC (32-36) % Plt Count (150-400) K/uL Neut % (Auto) (36-66) % Lymph % (Auto) (24-44) % [place] % (Auto) (2-6) % Eos % (Auto) (2-4) % Baso % (Auto) (0-1) % Sodium (140-148) mmol/L Potassium (3.6-5.2) mmol/L Chloride (100-108) mmol/L Carbon Dioxide (21-32) mmol/L Anion Gap (5.0-14.0) mmol/L BUN (7-18) mg/dL Creatinine (0.6-1.0) mg/dL Est Cr Clr Drug Dosing mL/min Estimated GFR (MDRD) (>60) Glucose (74-106) mg/dL Calcium (8.5-10.1) mg/dL Magnesium (1.8-2.4) mg/dL Total Bilirubin (0.2-1.0) mg/dL AST (15-37) U/L ALT (12-78) U/L Alkaline Phosphatase (46-116) U/L Total Protein (6.4-8.2) g/dL Albumin (3.4-5.0) g/dL Globulin (2.3-3.5) g/dL Albumin/Globulin Ratio (1.2-2.2) Urine Color Yellow Urine Appearance Clear Urine pH 6.5 (4.5-8.0) Ur Specific [place] 1.010 (1.008-1.030) Urine Protein Negative (NEGATIVE) mg/dL Urine Glucose (UA) Normal (NEGATIVE) mg/dL Urine Ketones 50 H (NEGATIVE) mg/dL Urine Occult Blood Negative (NEGATIVE) Urine Nitrite Negative (NEGATIVE) Urine Bilirubin Negative (NEGATIVE) Urine Urobilinogen Normal (NORMAL) mg/dL Ur Leukocyte Esterase Negative (NEGATIVE) Urine RBC 0-5 (0-5) Urine WBC 0-5 (0-5) Ur Epithelial Cells Few Amorphous Sediment Not seen Urine Bacteria Not seen Urine Mucus Not seen Med Orders - Current: Current Medications Acetaminophen (Tylenol) 650 mg PO Q4H PRN PRN Reason: Pain (Mild 1-3)/fever Acetaminophen (Tylenol) 650 mg RECTAL Q4H PRN PRN Reason: Pain (Mild 1-3)/fever Al Hydroxide/Mg Hydroxide (Mag-Al Plus) 30 ml PO Q4H PRN PRN Reason: DYSPEPSIA Calcium Carbonate/Glycine (Tums) 500 - 1,000 mg PO Q4H PRN PRN Reason: DYSPEPSIA Cyclobenzaprine HCl (Flexeril) 10 mg PO TID PRN PRN Reason: Muscle Spasm Docusate Sodium (Colace) 100 mg PO BID [facility] Last Admin: 02/03/17 13:26 Dose: Not Given Hydromorphone HCl (Dilaudid) 0.5 mg IVPUSH Q2H PRN PRN Reason: Pain Last Admin: 02/03/17 14:15 Dose: 0.5 mg Lactated Ringer's (Ringers, Lactated) 1,000 mls @ 125 mls/hr IV ASDIRECTED [facility] Last Admin: 02/03/17 09:12 Dose: 125 mls/hr Cefazolin Sodium/Dextrose 1 gm (/ Premix) 50 mls @ 100 mls/hr IV Q8H [facility] Stop: 02/04/17 09:29 Magnesium Hydroxide (Milk Of Magnesia) 30 ml PO Q12H PRN PRN Reason: Constipation Morphine Sulfate (Morphine) 1 mg IV Q2H PRN PRN Reason: BREAKTHROUGH PAIN Last Admin: 02/03/17 08:12 Dose: 1 mg Ondansetron HCl (Zofran) 4 mg IV Q4H PRN PRN Reason: Nausea/Vomiting Last Admin: 02/03/17 14:48 Dose: 4 mg Oxycodone HCl (Oxycodone) 5 mg PO Q4H PRN PRN Reason: Pain (moderate 4-6) Polyethylene Glycol (Miralax) 17 gm PO DAILY PRN PRN Reason: Constipation Sodium Chloride (Saline Flush) 10 ml FLUSH ASDIRECTED PRN PRN Reason: Keep Vein Open Tramadol HCl (Ultram) 100 mg PO Q6H PRN PRN Reason: PAIN Discontinued Medications Bupivacaine HCl/Epinephrine Bitart (Marcaine 0.5%/Epinephrine 1:200,000) Confirm Administered Dose 50 ml .ROUTE .STK-MED ONE Stop: 02/03/17 09:33 Last Admin: 02/03/17 10:55 Dose: 50 ml Docusate Sodium (Colace) 100 mg PO BID PRN PRN Reason: Constipation Fentanyl (Sublimaze) Confirm Administered Dose 100 mcg .ROUTE .STK-MED ONE Stop: 02/03/17 09:36 Gentamicin Sulfate (Gentamicin) Confirm Administered Dose 240 mg .ROUTE .STK- MED ONE Stop: 02/03/17 09:33 Last Admin: 02/03/17 10:55 Dose: 240 mg Hydromorphone HCl (Dilaudid) 1 mg IM ONETIME ONE Stop: 02/02/17 15:31 Last Admin: 02/02/17 15:37 Dose: 1 mg Hydromorphone HCl (Dilaudid) 1 mg IVPUSH ONETIME ONE Stop: 02/02/17 16:16 Last Admin: 02/02/17 16:45 Dose: 1 mg Lactated Ringer's (Ringers, Lactated) 1,000 mls @ 150 mls/hr IV ASDIRECTED [facility] Last Admin: 02/02/17 16:44 Dose: 150 mls/hr Cefazolin Sodium/Dextrose 1 gm (/ Premix) 50 mls @ 100 mls/hr IV ONETIME ONE Stop: 02/03/17 10:29 Last Admin: 02/03/17 13:12 Dose: 100 mls/hr Midazolam HCl (Versed 1 Mg/Ml) Confirm Administered Dose 2 mg .ROUTE .STK-MED ONE Stop: 02/03/17 09:36 Midazolam HCl (Versed 1 Mg/Ml) Confirm Administered Dose 2 mg .ROUTE .STK-MED ONE Stop: 02/03/17 10:38 Ondansetron HCl (Zofran Odt) 4 mg PO ONETIME ONE Stop: 02/02/17 15:30 Last Admin: 02/02/17 15:36 Dose: 4 mg Povidone Iodine (Betadine 10% Soln) Confirm Administered Dose 1 ml .ROUTE .STK- MED ONE Stop: 02/03/17 09:33 Last Admin: 02/03/17 10:54 Dose: 1 ml Povidone Iodine (Betadine 10% Soln) Confirm Administered Dose 1 ml .ROUTE .STK- MED ONE Stop: 02/03/17 09:34 Propofol (Diprivan 20 Ml) Confirm Administered Dose 200 mg .ROUTE .STK-MED ONE Stop: 02/03/17 09:36 Propofol (Diprivan 20 Ml) Confirm Administered Dose 200 mg .ROUTE .STK-MED ONE Stop: 02/03/17 11:45 Sodium Chloride (Saline Flush) 10 ml FLUSH ASDIRECTED PRN PRN Reason: Keep Vein Open - Exam Quality Assessment: Urine Catheter, DVT Prophylaxis General: Alert, Oriented, Cooperative, Mild Distress Lungs: Clear to Auscultation, Normal Respiratory Effort Cardiovascular: Regular Rate, Regular Rhythm, No Murmurs GI/Abdominal Exam: Normal Bowel Sounds, Soft, Non-Tender, No Distention Extremities: No Pedal Edema Skin: Warm, Dry, Intact - Problem List Review Problem List Initiated/Reviewed/Updated: Yes - My Orders Last 24 Hours: My Active Orders 02/02/17 16:49 Resuscitation Status Routine 02/02/17 18:10 Patient Status [ADT] Routine Bedrest Bedside Commode [RC] ASDIRECTED Intake and Output [RC] QSHIFT Notify Provider Consults [RC] ASDIRECTED Notify Provider Vital Signs [RC] ASDIRECTED Oxygen Therapy [RC] PRN Peripheral IV Care [RC] Q12H VTE/DVT Education [RC] Per Unit Routine Vital Signs [RC] Q4H Consult to Physician [CONS] Routine Acetaminophen [Tylenol] 650 mg PO Q4H PRN HYDROmorphone [Dilaudid] 0.5 mg IVPUSH Q2H PRN Lactated Ringers [Ringers, Lactated] 1,000 ml IV ASDIRECTED Magnesium Hydroxide [Milk of Magnesia] 30 ml PO Q12H PRN Ondansetron [Zofran] 4 mg IV Q4H PRN Polyethylene Glycol 3350 [MiraLAX] 17 gm PO DAILY PRN Sodium Chloride 0.9% [Saline Flush] 10 ml FLUSH ASDIRECTED PRN oxyCODONE 5 mg PO Q4H PRN Peripheral IV Insertion Adult [OM.PC] Routine Sequential Compression Device [OM.PC] Per Unit Routine VTE Pharmacological Contraindications [AST] Per Unit Routine 02/02/17 18:49 Acetaminophen [Tylenol] 650 mg RECTAL Q4H PRN 02/02/17 21:00 Docusate Sodium [Colace] 100 mg PO BID 02/04/17 05:00 BASIC METABOLIC PANEL,BMP [CHEM] Timed CBC WITH AUTO DIFF [HEME] Timed - Plan Plan:: ASSSESSMENT / PLAN LEFT HIP FRACTURE-now status post surgical repair by Dr. Blayne Hoyt, stable and doing well during the immediate postoperative period -Ongoing postoperative care per Dr. Hoyt Maintenance issues -Nutrition: regular diet -Dolan catheter; in place to monitor urine output -DVT: SCD -PPI; IV Protonix 40mg daily -consult OT for discharge planning -consult PT for post-op orthopedic left hip fracture with surgical repair. CODE STATUS: FULL CODE Admission status: Admit to [address] [place] [address]. This patient will be admitted for inpatient services and is medically appropriate meeting medical necessity for inpatient admission as outlined in my documentation. I reasonably expect the patient will require inpatient services that span. Time over 2 midnights. I reasonably expect this patient to be discharged or transferred within 96 hours after admission to the [facility]. Disposition; home versus fpc at the time of discharge Primary care provider: not established Surgeon; Dr. Blayne Hoyt Hospitalist: Dr. Deras
[2017-02-03] MEDS: Acetaminophen 1,000 MG in Premix Bag 1 BAG IV SCH (16:16)
[2017-02-03] MEDS: ceFAZolin 1 GM in Premix Bag 1 BAG IV SCH (16:17)
[2017-02-03] MEDS: oxyCODONE 5 MG Tab PO PRN (16:29)
[2017-02-03] MEDS: HYDROmorphone 1 MG/ML Syringe IVPUSH PRN (19:37)
[2017-02-04] MEDS: Acetaminophen 1,000 MG in Premix Bag 1 BAG IV SCH ×3 (00:06→16:03)
[2017-02-04] MEDS: Cyclobenzaprine 10 MG Tab PO PRN ×2 (00:14→20:58)
[2017-02-04] MEDS: oxyCODONE 5 MG Tab PO PRN ×5 (00:14→22:55)
[2017-02-04] MEDS: ceFAZolin 1 GM in Premix Bag 1 BAG IV SCH ×2 (00:25→09:16)
[2017-02-04] MEDS: Ondansetron 4 MG/2 ML SDV IV PRN (02:38)
[2017-02-04] MEDS: traMADol 50 MG Tab PO PRN ×2 (02:39→11:20)
[2017-02-04] MEDS: Morphine 2 MG/ML Syringe IV PRN ×2 (04:52→06:50)
--- NOTE | 2017-02-04 09:06 | PCM.PN ---
- General Info Functional Status: Reports: Pain Controlled - Review of Systems General: Reports: No Symptoms HEENT: Reports: No Symptoms Pulmonary: Reports: No Symptoms Cardiovascular: Reports: No Symptoms Gastrointestinal: Reports: No Symptoms Genitourinary: Reports: No Symptoms Musculoskeletal: Reports: Leg Pain, Joint Pain Skin: Reports: No Symptoms Neurological: Reports: No Symptoms Psychiatric: Reports: No Symptoms - Patient Data Vitals - Most Recent: Last Vital Signs Temp 98.7 F 02/04/17 06:51 Pulse 81 02/04/17 06:51 Resp 16 02/04/17 06:51 BP 105/61 02/04/17 06:51 Pulse Ox 93 L 02/04/17 07:34 Weight - Most Recent: 135 lb I&O - Last 24 Hours: Intake & Output 02/03/17 02/04/17 02/04/17 22:59 06:59 14:59 Intake Total 2767 2871 100 Output Total 2030 1310 Balance 737 1561 100 Lab Results Last 24 Hours: Laboratory Results - last 24 hr 02/04/17 02/04/17 Range/Units 04:20 04:20 WBC 10.8 (4.5-11.0) K/uL RBC 3.66 (3.30-5.50) M/uL Hgb 10.8 L D (12.0-15.0) g/dL Hct 32.6 L (36.0-48.0) % MCV 89 (80-98) fL MCH 30 (27-31) pg MCHC 33 (32-36) % Plt Count 296 (150-400) K/uL Neut % (Auto) 80 H (36-66) % Lymph % (Auto) 8 L (24-44) % [place] % (Auto) 11 H (2-6) % Eos % (Auto) 1 L (2-4) % Baso % (Auto) 0 (0-1) % Sodium 135 L (140-148) mmol/L Potassium 3.6 (3.6-5.2) mmol/L Chloride 102 (100-108) mmol/L Carbon Dioxide 27 (21-32) mmol/L Anion Gap 9.6 (5.0-14.0) mmol/L BUN 6 L (7-18) mg/dL Creatinine 0.8 (0.6-1.0) mg/dL Est Cr Clr Drug Dosing 54.89 mL/min Estimated GFR (MDRD) > 60 (>60) Glucose 114 H (74-106) mg/dL Calcium 8.0 L (8.5-10.1) mg/dL Med Orders - Current: Current Medications Acetaminophen (Tylenol) 650 mg PO Q4H PRN PRN Reason: Pain (Mild 1-3)/fever Acetaminophen (Tylenol) 650 mg RECTAL Q4H PRN PRN Reason: Pain (Mild 1-3)/fever Al Hydroxide/Mg Hydroxide (Mag-Al Plus) 30 ml PO Q4H PRN PRN Reason: DYSPEPSIA Calcium Carbonate/Glycine (Tums) 500 - 1,000 mg PO Q4H PRN PRN Reason: DYSPEPSIA Cyclobenzaprine HCl (Flexeril) 10 mg PO TID PRN PRN Reason: Muscle Spasm Last Admin: 02/04/17 00:14 Dose: 10 mg Diazepam (Valium) 5 mg IVPUSH Q8H PRN PRN Reason: spasm Last Admin: 02/03/17 17:29 Dose: 5 mg Docusate Sodium (Colace) 100 mg PO BID [facility] Last Admin: 02/03/17 20:56 Dose: 100 mg Hydromorphone HCl (Dilaudid) 2 mg IVPUSH Q3H PRN PRN Reason: Pain Last Admin: 02/03/17 19:37 Dose: 2 mg Cefazolin Sodium/Dextrose 1 gm (/ Premix) 50 mls @ 100 mls/hr IV Q8H [facility] Stop: 02/04/17 09:29 Last Admin: 02/04/17 00:25 Dose: 100 mls/hr Acetaminophen 1,000 mg/ Premix 100 mls @ 400 mls/hr IV Q8H [facility] Stop: 02/04/17 16:01 Last Admin: 02/04/17 07:56 Dose: 400 mls/hr Magnesium Hydroxide (Milk Of Magnesia) 30 ml PO Q12H PRN PRN Reason: Constipation Morphine Sulfate (Morphine) 1 mg IV Q2H PRN PRN Reason: BREAKTHROUGH PAIN Last Admin: 02/04/17 06:50 Dose: 1 mg Ondansetron HCl (Zofran) 4 mg IV Q4H PRN PRN Reason: Nausea/Vomiting Last Admin: 02/04/17 02:38 Dose: 4 mg Oxycodone HCl (Oxycodone) 5 - 10 mg PO Q4H PRN PRN Reason: Pain Last Admin: 02/04/17 04:47 Dose: 10 mg Polyethylene Glycol (Miralax) 17 gm PO DAILY PRN PRN Reason: Constipation Sodium Chloride (Saline Flush) 10 ml FLUSH ASDIRECTED PRN PRN Reason: Keep Vein Open Tramadol HCl (Ultram) 100 mg PO Q6H PRN PRN Reason: PAIN Last Admin: 02/04/17 02:39 Dose: 100 mg Discontinued Medications Bupivacaine HCl/Epinephrine Bitart (Marcaine 0.5%/Epinephrine 1:200,000) Confirm Administered Dose 50 ml .ROUTE .STK-MED ONE Stop: 02/03/17 09:33 Last Admin: 02/03/17 10:55 Dose: 50 ml Docusate Sodium (Colace) 100 mg PO BID PRN PRN Reason: Constipation Fentanyl (Sublimaze) Confirm Administered Dose 100 mcg .ROUTE .STK-MED ONE Stop: 02/03/17 09:36 Gentamicin Sulfate (Gentamicin) Confirm Administered Dose 240 mg .ROUTE .STK- MED ONE Stop: 02/03/17 09:33 Last Admin: 02/03/17 10:55 Dose: 240 mg Hydromorphone HCl (Dilaudid) 1 mg IM ONETIME ONE Stop: 02/02/17 15:31 Last Admin: 02/02/17 15:37 Dose: 1 mg Hydromorphone HCl (Dilaudid) 1 mg IVPUSH ONETIME ONE Stop: 02/02/17 16:16 Last Admin: 02/02/17 16:45 Dose: 1 mg Hydromorphone HCl (Dilaudid) 0.5 mg IVPUSH Q2H PRN PRN Reason: Pain Last Admin: 02/03/17 14:15 Dose: 0.5 mg Lactated Ringer's (Ringers, Lactated) 1,000 mls @ 150 mls/hr IV ASDIRECTED [facility] Last Admin: 02/02/17 16:44 Dose: 150 mls/hr Lactated Ringer's (Ringers, Lactated) 1,000 mls @ 125 mls/hr IV ASDIRECTED [facility] Last Infusion: 02/04/17 06:25 Dose: Infused Cefazolin Sodium/Dextrose 1 gm (/ Premix) 50 mls @ 100 mls/hr IV ONETIME ONE Stop: 02/03/17 10:29 Last Admin: 02/03/17 13:12 Dose: 100 mls/hr Midazolam HCl (Versed 1 Mg/Ml) Confirm Administered Dose 2 mg .ROUTE .STK-MED ONE Stop: 02/03/17 09:36 Midazolam HCl (Versed 1 Mg/Ml) Confirm Administered Dose 2 mg .ROUTE .STK-MED ONE Stop: 02/03/17 10:38 Ondansetron HCl (Zofran Odt) 4 mg PO ONETIME ONE Stop: 02/02/17 15:30 Last Admin: 02/02/17 15:36 Dose: 4 mg Oxycodone HCl (Oxycodone) 5 mg PO Q4H PRN PRN Reason: Pain (moderate 4-6) Povidone Iodine (Betadine 10% Soln) Confirm Administered Dose 1 ml .ROUTE .STK- MED ONE Stop: 02/03/17 09:33 Last Admin: 02/03/17 10:54 Dose: 1 ml Povidone Iodine (Betadine 10% Soln) Confirm Administered Dose 1 ml .ROUTE .STK- MED ONE Stop: 02/03/17 09:34 Propofol (Diprivan 20 Ml) Confirm Administered Dose 200 mg .ROUTE .STK-MED ONE Stop: 02/03/17 09:36 Propofol (Diprivan 20 Ml) Confirm Administered Dose 200 mg .ROUTE .STK-MED ONE Stop: 02/03/17 11:45 Sodium Chloride (Saline Flush) 10 ml FLUSH ASDIRECTED PRN PRN Reason: Keep Vein Open - Exam General: Alert, Oriented HEENT: Pupils Equal, Pupils Reactive, EOMI, Mucous Membr. Moist/[place] Neck: Supple Extremities: Normal Inspection, Normal Capillary Refill, Leg Pain, Limited Range of Motion Peripheral Pulses: 2+: Dorsalis Pedis (L) Skin: Warm, Dry, Intact Wound/Incisions: Healing Well, Dressing Dry and Intact, No Drainage Neurological: No New Focal Deficit Psy/Mental Status: Alert, Normal Affect, Normal Mood - Problem List & Annotations (1) Primary osteoarthritis of left hip SNOMED Code(s): 668357282, 462732549 Code(s): M16.12 - UNILATERAL PRIMARY OSTEOARTHRITIS, LEFT HIP Status: Acute Current Visit: Yes (2) Fracture of neck of femur, hip SNOMED Code(s): 1006816 Code(s): S72.009A - FRACTURE OF UNSP PART OF NECK OF UNSP FEMUR, INIT Status: Acute Priority: High Current Visit: Yes - Problem List Review Problem List Initiated/Reviewed/Updated: Yes - My Orders Last 24 Hours: My Active Orders 02/03/17 10:21 Cooling Warming Measures [RC] ASDIRECTED Ice Pack [Ice Therapy] [OM.PC] Routine Weight bearing status [OM.PC] Routine 02/03/17 10:56 Hip Min 2V or 3V Lt [CR] Routine 02/03/17 15:44 HYDROmorphone [Dilaudid] 2 mg IVPUSH Q3H PRN 02/03/17 15:49 oxyCODONE 5 - 10 mg PO Q4H PRN 02/03/17 16:00 Acetaminophen [Ofirmev] 1,000 mg Premix Bag 1 bag IV Q8H 02/03/17 17:00 ceFAZolin [Ancef] 1 gm Premix Bag 1 bag IV Q8H 02/03/17 18:37 Pulse Oximetry Continuous Monitoring [OM.PC] Routine 02/03/17 18:38 Overnight Pulse Oximetry [RC] Click to Edit 02/03/17 Lunch Advance Diet Instructions [DIET] 02/04/17 06:26 Convert IV to Saline Lock [OM.PC] Routine - Plan Plan:: A: POD#1 left hip total hip arthroplasty P: pt/ot/pain control/dvt prophylaxis if patient does well with pt may dc tomorrow to home. pt has son and daughter in law at home
[2017-02-04] MEDS: Docusate Sodium 100 MG Cap PO SCH ×2 (09:17→20:53)
--- NOTE | 2017-02-04 11:18 | PCM.PN ---
- General Info Date of Service: 02/04/17 Functional Status: Reports: Pain Controlled, Tolerating Diet, Ambulating - Review of Systems General: Reports: Weakness. Denies: Fever, Chills Pulmonary: Reports: No Symptoms Cardiovascular: Reports: No Symptoms Gastrointestinal: Reports: No Symptoms Systems Review Comment:: This patient has been stable since surgery yesterday. Initially did have some difficulty with pain control but that seems to be much better today, she's been up in the chair and walking short distance already. Vital signs have been stable and she has remained afebrile. - Patient Data Vitals - Most Recent: Last Vital Signs Temp 98.4 F 02/04/17 10:56 Pulse 75 02/04/17 10:56 Resp 16 02/04/17 10:56 BP 113/63 02/04/17 10:56 Pulse Ox 96 02/04/17 10:56 Weight - Most Recent: 135 lb I&O - Last 24 Hours: Intake & Output 02/03/17 02/04/17 02/04/17 22:59 06:59 14:59 Intake Total 2767 2871 550 Output Total 2030 1310 Balance 737 1561 550 Lab Results Last 24 Hours: Laboratory Results - last 24 hr 02/04/17 02/04/17 Range/Units 04:20 04:20 WBC 10.8 (4.5-11.0) K/uL RBC 3.66 (3.30-5.50) M/uL Hgb 10.8 L D (12.0-15.0) g/dL Hct 32.6 L (36.0-48.0) % MCV 89 (80-98) fL MCH 30 (27-31) pg MCHC 33 (32-36) % Plt Count 296 (150-400) K/uL Neut % (Auto) 80 H (36-66) % Lymph % (Auto) 8 L (24-44) % [place] % (Auto) 11 H (2-6) % Eos % (Auto) 1 L (2-4) % Baso % (Auto) 0 (0-1) % Sodium 135 L (140-148) mmol/L Potassium 3.6 (3.6-5.2) mmol/L Chloride 102 (100-108) mmol/L Carbon Dioxide 27 (21-32) mmol/L Anion Gap 9.6 (5.0-14.0) mmol/L BUN 6 L (7-18) mg/dL Creatinine 0.8 (0.6-1.0) mg/dL Est Cr Clr Drug Dosing 54.89 mL/min Estimated GFR (MDRD) > 60 (>60) Glucose 114 H (74-106) mg/dL Calcium 8.0 L (8.5-10.1) mg/dL Med Orders - Current: Current Medications Acetaminophen (Tylenol) 650 mg PO Q4H PRN PRN Reason: Pain (Mild 1-3)/fever Acetaminophen (Tylenol) 650 mg RECTAL Q4H PRN PRN Reason: Pain (Mild 1-3)/fever Al Hydroxide/Mg Hydroxide (Mag-Al Plus) 30 ml PO Q4H PRN PRN Reason: DYSPEPSIA Aspirin (Ecotrin) 325 mg PO DAILY [facility] Calcium Carbonate/Glycine (Tums) 500 - 1,000 mg PO Q4H PRN PRN Reason: DYSPEPSIA Cyclobenzaprine HCl (Flexeril) 10 mg PO TID PRN PRN Reason: Muscle Spasm Last Admin: 02/04/17 00:14 Dose: 10 mg Diazepam (Valium) 5 mg IVPUSH Q8H PRN PRN Reason: spasm Last Admin: 02/03/17 17:29 Dose: 5 mg Docusate Sodium (Colace) 100 mg PO BID [facility] Last Admin: 02/04/17 09:17 Dose: 100 mg Hydromorphone HCl (Dilaudid) 2 mg IVPUSH Q3H PRN PRN Reason: Pain Last Admin: 02/03/17 19:37 Dose: 2 mg Acetaminophen 1,000 mg/ Premix 100 mls @ 400 mls/hr IV Q8H [facility] Stop: 02/04/17 16:01 Last Admin: 02/04/17 07:56 Dose: 400 mls/hr Magnesium Hydroxide (Milk Of Magnesia) 30 ml PO Q12H PRN PRN Reason: Constipation Morphine Sulfate (Morphine) 1 mg IV Q2H PRN PRN Reason: BREAKTHROUGH PAIN Last Admin: 02/04/17 06:50 Dose: 1 mg Ondansetron HCl (Zofran) 4 mg IV Q4H PRN PRN Reason: Nausea/Vomiting Last Admin: 02/04/17 02:38 Dose: 4 mg Oxycodone HCl (Oxycodone) 5 - 10 mg PO Q4H PRN PRN Reason: Pain Last Admin: 02/04/17 09:35 Dose: 5 mg Polyethylene Glycol (Miralax) 17 gm PO DAILY PRN PRN Reason: Constipation Sodium Chloride (Saline Flush) 10 ml FLUSH ASDIRECTED PRN PRN Reason: Keep Vein Open Tramadol HCl (Ultram) 100 mg PO Q6H PRN PRN Reason: PAIN Last Admin: 02/04/17 02:39 Dose: 100 mg Discontinued Medications Bupivacaine HCl/Epinephrine Bitart (Marcaine 0.5%/Epinephrine 1:200,000) Confirm Administered Dose 50 ml .ROUTE .STK-MED ONE Stop: 02/03/17 09:33 Last Admin: 02/03/17 10:55 Dose: 50 ml Docusate Sodium (Colace) 100 mg PO BID PRN PRN Reason: Constipation Fentanyl (Sublimaze) Confirm Administered Dose 100 mcg .ROUTE .STK-MED ONE Stop: 02/03/17 09:36 Gentamicin Sulfate (Gentamicin) Confirm Administered Dose 240 mg .ROUTE .STK- MED ONE Stop: 02/03/17 09:33 Last Admin: 02/03/17 10:55 Dose: 240 mg Hydromorphone HCl (Dilaudid) 1 mg IM ONETIME ONE Stop: 02/02/17 15:31 Last Admin: 02/02/17 15:37 Dose: 1 mg Hydromorphone HCl (Dilaudid) 1 mg IVPUSH ONETIME ONE Stop: 02/02/17 16:16 Last Admin: 02/02/17 16:45 Dose: 1 mg Hydromorphone HCl (Dilaudid) 0.5 mg IVPUSH Q2H PRN PRN Reason: Pain Last Admin: 02/03/17 14:15 Dose: 0.5 mg Lactated Ringer's (Ringers, Lactated) 1,000 mls @ 150 mls/hr IV ASDIRECTED [facility] Last Admin: 02/02/17 16:44 Dose: 150 mls/hr Lactated Ringer's (Ringers, Lactated) 1,000 mls @ 125 mls/hr IV ASDIRECTED [facility] Last Infusion: 02/04/17 06:25 Dose: Infused Cefazolin Sodium/Dextrose 1 gm (/ Premix) 50 mls @ 100 mls/hr IV ONETIME ONE Stop: 02/03/17 10:29 Last Admin: 02/03/17 13:12 Dose: 100 mls/hr Cefazolin Sodium/Dextrose 1 gm (/ Premix) 50 mls @ 100 mls/hr IV Q8H [facility] Stop: 02/04/17 09:29 Last Admin: 02/04/17 09:16 Dose: 100 mls/hr Midazolam HCl (Versed 1 Mg/Ml) Confirm Administered Dose 2 mg .ROUTE .STK-MED ONE Stop: 02/03/17 09:36 Midazolam HCl (Versed 1 Mg/Ml) Confirm Administered Dose 2 mg .ROUTE .STK-MED ONE Stop: 02/03/17 10:38 Ondansetron HCl (Zofran Odt) 4 mg PO ONETIME ONE Stop: 02/02/17 15:30 Last Admin: 02/02/17 15:36 Dose: 4 mg Oxycodone HCl (Oxycodone) 5 mg PO Q4H PRN PRN Reason: Pain (moderate 4-6) Povidone Iodine (Betadine 10% Soln) Confirm Administered Dose 1 ml .ROUTE .STK- MED ONE Stop: 02/03/17 09:33 Last Admin: 02/03/17 10:54 Dose: 1 ml Povidone Iodine (Betadine 10% Soln) Confirm Administered Dose 1 ml .ROUTE .STK- MED ONE Stop: 02/03/17 09:34 Propofol (Diprivan 20 Ml) Confirm Administered Dose 200 mg .ROUTE .STK-MED ONE Stop: 02/03/17 09:36 Propofol (Diprivan 20 Ml) Confirm Administered Dose 200 mg .ROUTE .STK-MED ONE Stop: 02/03/17 11:45 Sodium Chloride (Saline Flush) 10 ml FLUSH ASDIRECTED PRN PRN Reason: Keep Vein Open - Exam Quality Assessment: DVT Prophylaxis General: Alert, Oriented, Cooperative, Mild Distress Lungs: Clear to Auscultation, Normal Respiratory Effort Cardiovascular: Regular Rate, Regular Rhythm, No Murmurs GI/Abdominal Exam: Normal Bowel Sounds, Soft, Non-Tender, No Distention Extremities: Normal Inspection, No Pedal Edema Skin: Warm, Dry, Intact - Problem List Review Problem List Initiated/Reviewed/Updated: Yes - My Orders Last 24 Hours: My Active Orders 02/03/17 15:46 Diazepam [Valium] 5 mg IVPUSH Q8H PRN 02/03/17 19:53 Air Mattress [Pressure Reduction Mattress] [OM.PC] Routine - Plan Plan:: ASSSESSMENT / PLAN LEFT HIP FRACTURE-now status post surgical repair by Dr. Blayne Hoyt, stable and doing well thus far -Ongoing postoperative care per Dr. Hoyt Maintenance issues -Nutrition: regular diet -Dolan catheter; in place to monitor urine output -DVT: SCD -PPI; not indicated -consult OT for discharge planning -consult PT for post-op orthopedic left hip fracture with surgical repair. CODE STATUS: FULL CODE Admission status: Admit to [address] [place] [address] Admission justification. This patient will be admitted for inpatient services and is medically appropriate meeting medical necessity for inpatient admission as outlined in my documentation. I reasonably expect the patient will require inpatient services that span. Time over 2 midnights. I reasonably expect this patient to be discharged or transferred within 96 hours after admission to the critical access hospital. Disposition; home versus care home at the time of discharge Primary care provider: not established Surgeon; Dr. Blayne Hoyt Hospitalist: Dr. Deras
[2017-02-04] MEDS: Aspirin 325 MG Tab.EC PO SCH (12:14)
[2017-02-04] MEDS: HYDROmorphone 1 MG/ML Syringe IVPUSH PRN (13:10)
[2017-02-04] MEDS: Pantoprazole 40 MG Tab.CR PO SCH (13:29)
[2017-02-04] MEDS: Acetaminophen 325 MG Tab PO PRN (23:00)
[2017-02-05] MEDS: traMADol 50 MG Tab PO PRN (00:59)
[2017-02-05] MEDS: Acetaminophen 325 MG Tab PO PRN (02:59)
[2017-02-05] MEDS: Pantoprazole 40 MG Tab.CR PO SCH (07:39)
[2017-02-05] MEDS: oxyCODONE 5 MG Tab PO PRN ×2 (07:43→12:15)
[2017-02-05] MEDS: Docusate Sodium 100 MG Cap PO SCH (09:50)
[2017-02-05] MEDS: Aspirin 325 MG Tab.EC PO SCH (09:50)
--- NOTE | 2017-02-05 10:30 | CR ---
Hip Min 2V or 3V Lt INDICATION: POST ORIF LEFT HIP FINDINGS: Postoperative changes left total hip arthroplasty. Negative for postoperative purposes.
[2017-02-05] MEDS ORDERED: HYDROmorphone 1 MG/ML Syringe IVPUSH PRN (10:40)
--- NOTE | 2017-02-05 10:41 | PCM.PN ---
- Patient Data Vitals - Most Recent: Last Vital Signs Temp 36.2 C 02/05/17 07:00 Pulse 95 02/05/17 07:00 Resp 18 02/05/17 07:00 BP 93/58 L 02/05/17 07:00 Pulse Ox 93 L 02/05/17 07:00 Weight - Most Recent: 61.235 kg I&O - Last 24 Hours: Intake & Output 02/04/17 02/05/17 02/05/17 22:59 06:59 14:59 Intake Total 1440 650 Output Total 2100 1927 1125 Balance -660 -1925 -475 Med Orders - Current: Current Medications Acetaminophen (Tylenol) 650 mg PO Q4H PRN PRN Reason: Pain (Mild 1-3)/fever Last Admin: 02/05/17 02:59 Dose: 650 mg Acetaminophen (Tylenol) 650 mg RECTAL Q4H PRN PRN Reason: Pain (Mild 1-3)/fever Al Hydroxide/Mg Hydroxide (Mag-Al Plus) 30 ml PO Q4H PRN PRN Reason: DYSPEPSIA Aspirin (Ecotrin) 325 mg PO DAILY [facility] Last Admin: 02/05/17 09:50 Dose: 325 mg Calcium Carbonate/Glycine (Tums) 500 - 1,000 mg PO Q4H PRN PRN Reason: DYSPEPSIA Last Admin: 02/04/17 12:14 Dose: 1,000 mg Cyclobenzaprine HCl (Flexeril) 10 mg PO TID PRN PRN Reason: Muscle Spasm Last Admin: 02/04/17 20:58 Dose: 10 mg Diazepam (Valium) 5 mg IVPUSH Q8H PRN PRN Reason: spasm Last Admin: 02/03/17 17:29 Dose: 5 mg Docusate Sodium (Colace) 100 mg PO BID [facility] Last Admin: 02/05/17 09:50 Dose: 100 mg Magnesium Hydroxide (Milk Of Magnesia) 30 ml PO Q12H PRN PRN Reason: Constipation Last Admin: 02/04/17 12:14 Dose: 30 ml Ondansetron HCl (Zofran) 4 mg IV Q4H PRN PRN Reason: Nausea/Vomiting Last Admin: 02/04/17 02:38 Dose: 4 mg Oxycodone HCl (Oxycodone) 5 - 10 mg PO Q4H PRN PRN Reason: Pain Last Admin: 02/05/17 07:43 Dose: 10 mg Pantoprazole Sodium (Protonix) 40 mg PO ACBREAKFAST [facility] Last Admin: 02/05/17 07:39 Dose: 40 mg Polyethylene Glycol (Miralax) 17 gm PO DAILY PRN PRN Reason: Constipation Last Admin: 02/05/17 09:50 Dose: 17 gm Sodium Chloride (Saline Flush) 10 ml FLUSH ASDIRECTED PRN PRN Reason: Keep Vein Open Tramadol HCl (Ultram) 100 mg PO Q6H PRN PRN Reason: PAIN Last Admin: 02/05/17 00:59 Dose: 100 mg Discontinued Medications Bupivacaine HCl/Epinephrine Bitart (Marcaine 0.5%/Epinephrine 1:200,000) Confirm Administered Dose 50 ml .ROUTE .STK-MED ONE Stop: 02/03/17 09:33 Last Admin: 02/03/17 10:55 Dose: 50 ml Docusate Sodium (Colace) 100 mg PO BID PRN PRN Reason: Constipation Fentanyl (Sublimaze) Confirm Administered Dose 100 mcg .ROUTE .STK-MED ONE Stop: 02/03/17 09:36 Gentamicin Sulfate (Gentamicin) Confirm Administered Dose 240 mg .ROUTE .STK- MED ONE Stop: 02/03/17 09:33 Last Admin: 02/03/17 10:55 Dose: 240 mg Hydromorphone HCl (Dilaudid) 1 mg IM ONETIME ONE Stop: 02/02/17 15:31 Last Admin: 02/02/17 15:37 Dose: 1 mg Hydromorphone HCl (Dilaudid) 1 mg IVPUSH ONETIME ONE Stop: 02/02/17 16:16 Last Admin: 02/02/17 16:45 Dose: 1 mg Hydromorphone HCl (Dilaudid) 0.5 mg IVPUSH Q2H PRN PRN Reason: Pain Last Admin: 02/03/17 14:15 Dose: 0.5 mg Hydromorphone HCl (Dilaudid) 2 mg IVPUSH Q3H PRN PRN Reason: Pain Last Admin: 02/04/17 13:10 Dose: 1 mg Lactated Ringer's (Ringers, Lactated) 1,000 mls @ 150 mls/hr IV ASDIRECTED [facility] Last Admin: 02/02/17 16:44 Dose: 150 mls/hr Lactated Ringer's (Ringers, Lactated) 1,000 mls @ 125 mls/hr IV ASDIRECTED [facility] Last Infusion: 02/04/17 06:25 Dose: Infused Cefazolin Sodium/Dextrose 1 gm (/ Premix) 50 mls @ 100 mls/hr IV ONETIME ONE Stop: 02/03/17 10:29 Last Admin: 02/03/17 13:12 Dose: 100 mls/hr Cefazolin Sodium/Dextrose 1 gm (/ Premix) 50 mls @ 100 mls/hr IV Q8H [facility] Stop: 02/04/17 09:29 Last Admin: 02/04/17 09:16 Dose: 100 mls/hr Acetaminophen 1,000 mg/ Premix 100 mls @ 400 mls/hr IV Q8H [facility] Stop: 02/04/17 16:01 Last Admin: 02/04/17 16:03 Dose: 400 mls/hr Midazolam HCl (Versed 1 Mg/Ml) Confirm Administered Dose 2 mg .ROUTE .STK-MED ONE Stop: 02/03/17 09:36 Midazolam HCl (Versed 1 Mg/Ml) Confirm Administered Dose 2 mg .ROUTE .STK-MED ONE Stop: 02/03/17 10:38 Morphine Sulfate (Morphine) 1 mg IV Q2H PRN PRN Reason: BREAKTHROUGH PAIN Last Admin: 02/04/17 06:50 Dose: 1 mg Ondansetron HCl (Zofran Odt) 4 mg PO ONETIME ONE Stop: 02/02/17 15:30 Last Admin: 02/02/17 15:36 Dose: 4 mg Oxycodone HCl (Oxycodone) 5 mg PO Q4H PRN PRN Reason: Pain (moderate 4-6) Povidone Iodine (Betadine 10% Soln) Confirm Administered Dose 1 ml .ROUTE .STK- MED ONE Stop: 02/03/17 09:33 Last Admin: 02/03/17 10:54 Dose: 1 ml Povidone Iodine (Betadine 10% Soln) Confirm Administered Dose 1 ml .ROUTE .STK- MED ONE Stop: 02/03/17 09:34 Propofol (Diprivan 20 Ml) Confirm Administered Dose 200 mg .ROUTE .STK-MED ONE Stop: 02/03/17 09:36 Propofol (Diprivan 20 Ml) Confirm Administered Dose 200 mg .ROUTE .STK-MED ONE Stop: 02/03/17 11:45 Sodium Chloride (Saline Flush) 10 ml FLUSH ASDIRECTED PRN PRN Reason: Keep Vein Open - My Orders Last 24 Hours: My Active Orders 02/05/17 10:40 HYDROmorphone [Dilaudid] 0.5 - 1 mg IVPUSH Q3H PRN 02/06/17 05:00 HEMOGLOBIN [HEME] Timed POTASSIUM,K [CHEM] Timed - Plan Plan:: ASSSESSMENT / PLAN LEFT HIP FRACTURE-now status post surgical repair by Dr. Blayne Hoyt, stable and doing well thus far -Ongoing postoperative care per Dr. Hoyt Maintenance issues -Nutrition: regular diet -Dolan catheter; in place to monitor urine output -DVT: SCD -PPI; not indicated -consult OT for discharge planning -consult PT for post-op orthopedic left hip fracture with surgical repair. CODE STATUS: FULL CODE Admission status: Admit to [address] [place] [address]. This patient will be admitted for inpatient services and is medically appropriate meeting medical necessity for inpatient admission as outlined in my documentation. I reasonably expect the patient will require inpatient services that span. Time over 2 midnights. I reasonably expect this patient to be discharged or transferred within 96 hours after admission to the critical access hospital. Disposition; home versus fpc at the time of discharge Primary care provider: not established Surgeon; Dr. Blayne Hoyt Hospitalist: Dr. Deras
[2017-02-05 10:45] VITALS: BP 98/62
--- NOTE | 2017-02-05 11:51 | PCM.DCSUM1 ---
Discharge Summary - Hospital Course Brief History: Thea presented with left hip pain after a fall. Workup in the emergency room was suggestive of a left hip fracture. She was admitted to the hospital for surgical management. - Discharge Data Discharge Date: 02/05/17 Discharge Disposition: DC/Tfer to SNF 03 Condition: Good - Discharge Diagnosis/Problem(s) (1) Fracture of neck of femur, hip SNOMED Code(s): 3554130 ICD Code: S72.009A - FRACTURE OF UNSP PART OF NECK OF UNSP FEMUR, INIT Status: Acute Priority: High Current Visit: Yes (2) Primary osteoarthritis of left hip SNOMED Code(s): 512121586, [id number] ICD Code: M16.12 - UNILATERAL PRIMARY OSTEOARTHRITIS, LEFT HIP Status: Acute Current Visit: Yes (3) Status post total hip replacement, left SNOMED Code(s): 321766143284, [id number] ICD Code: Z96.642 - PRESENCE OF LEFT ARTIFICIAL HIP JOINT Status: Acute Current Visit: Yes - Patient Summary/Data Operative Procedure(s) Performed: Left total hip arthroplasty with Dr. Hoyt Consults: Consultations 02/02/17 18:10 Consult to Physician [CONS] Routine Consulting Provider: Blayne Hoyt Courtsharon Call Completed to Consulting Physician: Yes Reason for Consult: Left hip fracture 02/02/17 21:43 Consult to Occupational Therapy [OT Evaluation and Treatment] [CONS] Routine Please Evaluate and Treat. OT Reason for Consult: Discharge Planning Special Instructions: fracture left hip with surgical repair This query below is only for informational purposes and is not editable. Admission Diagnosis/Problem: Hip fracture requiring operative repair PT Evaluation and Treatment [CONS] Routine Please Evaluate and Treat. PT Reason for Consult: Post op Ortho Surgery This query below is only for informational purposes and is not editable. Admission Diagnosis/Problem: Hip fracture requiring operative repair Hospital Course: Thea presented to the hospital with left hip pain after a fall. Workup in the emergency room was suggestive of a left hip fracture and she was admitted to the hospital for surgical management. The morning after admission she had a left total hip arthroplasty with Dr. Hoyt. A total hip arthroplasty was performed because of the severe arthritis involving the acetabulum. She tolerated the procedure well. Her postoperative period was uncomplicated and she has progressed well. Her pain has been well-controlled and she has been working with physical therapy effectively. Vital signs have been stable. There is no evidence for infection. I believe she is safe for hospital discharge at this time but would benefit from subacute rehabilitation prior to returning home. She'll be discharged to [facility] for physical and occupational therapy. Pain will be controlled utilizing scheduled acetaminophen and as needed tramadol and oxycodone. She will be on 325 mg of aspirin once daily 1 month as DVT prophylaxis. Follow-up is scheduled for February 23. - Patient Instructions Diet: Regular Diet as Tolerated Activity: As Tolerated Driving: Do Not Drive (if taking pain pills) Showering/Bathing: May Shower Wound/Incision Care: Keep Operative Site/Wound Site Clean and Dry, Change Dressing Daily Notify Provider of: Fever, Increased Pain, Nausea and/or Vomiting Other/Special Instructions: 1. You were in the hospital for management of a left hip fracture. Because this was coupled with severe left hip osteoarthritis a total left arthroplasty was performed. You have done well postoperatively and are ready for more aggressive physical therapy and outpatient rehabilitation. 2. You can be weightbearing as tolerated on your left leg. 3. Pain control will be with a combination of acetaminophen, tramadol and oxycodone. 4. You should follow-up with Dr. Hoyt as scheduled. Your santiago will be removed at that time. 5. Please seek medical attention if you develop fever greater than 101, have excessive bleeding from your incision, severe pain that is not well controlled with the above medications or you develop sudden onset of shortness of breath or chest pain. - Discharge Plan Prescriptions/Med Rec: Acetaminophen [Tylenol Extra Strength] 1,000 mg PO TID #180 tablet Aspirin [Ecotrin] 325 mg PO DAILY #30 tab.ec Docusate Sodium [Colace] 100 mg PO BID PRN #60 cap PRN Reason: Constipation oxyCODONE 5 mg PO Q4H PRN #60 tablet PRN Reason: Pain (Severe 7-10) oxyCODONE 5 mg PO Q4H PRN #60 tab PRN Reason: Pain (Severe 7-10) traMADol [Ultram] 100 mg PO Q6H PRN #90 tablet PRN Reason: Pain (Moderate 4-6) traMADol [Ultram] 100 mg PO Q6H PRN #90 tab PRN Reason: Pain (Moderate 4-6) Home Medications: Home Meds Cyclobenzaprine [Flexeril] 10 mg PO TID PRN 02/02/17 [History] Acetaminophen [Tylenol Extra Strength] 1,000 mg PO TID #180 tablet 02/05/17 [Rx] Aspirin [Ecotrin] 325 mg PO DAILY #30 tab.ec 02/05/17 [Rx] Docusate Sodium [Colace] 100 mg PO BID PRN #60 cap 02/05/17 [Rx] oxyCODONE 5 mg PO Q4H PRN #60 tab 02/05/17 [Rx] oxyCODONE 5 mg PO Q4H PRN #60 tablet 02/05/17 [Rx] traMADol [Ultram] 100 mg PO Q6H PRN #90 tab 02/05/17 [Rx] traMADol [Ultram] 100 mg PO Q6H PRN #90 tablet 02/05/17 [Rx] Patient Handouts: Oxycodone tablets or capsules, Hip Fracture Referrals: PCP,None [Primary Care Provider] - Blayne Hoyt DO [Physician] - 02/26/17 10:15 am ([place] at 10:15, 10:30 XRAY , APPOINTMENT IS AT 11:00) - Discharge Summary/Plan Comment DC Time >30 min.: Yes (40 - new [facility] discharge) - Patient Data Vitals - Most Recent: Last Vital Signs Temp 35.7 C 02/05/17 10:44 Pulse 84 02/05/17 10:44 Resp 18 02/05/17 10:44 BP 98/62 02/05/17 10:44 Pulse Ox 93 L 02/05/17 10:44 Weight - Most Recent: 61.235 kg I&O - Last 24 hours: Intake & Output 02/04/17 02/05/17 02/05/17 22:59 06:59 14:59 Intake Total 1440 650 Output Total 3354 4192 3271 Balance -362 -1921 -131 Med Orders - Current: Current Medications Acetaminophen (Tylenol) 650 mg PO Q4H PRN PRN Reason: Pain (Mild 1-3)/fever Last Admin: 02/05/17 02:59 Dose: 650 mg Acetaminophen (Tylenol) 650 mg RECTAL Q4H PRN PRN Reason: Pain (Mild 1-3)/fever Al Hydroxide/Mg Hydroxide (Mag-Al Plus) 30 ml PO Q4H PRN PRN Reason: DYSPEPSIA Aspirin (Ecotrin) 325 mg PO DAILY [facility] Last Admin: 02/05/17 09:50 Dose: 325 mg Calcium Carbonate/Glycine (Tums) 500 - 1,000 mg PO Q4H PRN PRN Reason: DYSPEPSIA Last Admin: 02/04/17 12:14 Dose: 1,000 mg Cyclobenzaprine HCl (Flexeril) 10 mg PO TID PRN PRN Reason: Muscle Spasm Last Admin: 02/04/17 20:58 Dose: 10 mg Diazepam (Valium) 5 mg IVPUSH Q8H PRN PRN Reason: spasm Last Admin: 02/03/17 17:29 Dose: 5 mg Docusate Sodium (Colace) 100 mg PO BID [facility] Last Admin: 02/05/17 09:50 Dose: 100 mg Hydromorphone HCl (Dilaudid) 0.5 - 1 mg IVPUSH Q3H PRN PRN Reason: Pain Magnesium Hydroxide (Milk Of Magnesia) 30 ml PO Q12H PRN PRN Reason: Constipation Last Admin: 02/04/17 12:14 Dose: 30 ml Ondansetron HCl (Zofran) 4 mg IV Q4H PRN PRN Reason: Nausea/Vomiting Last Admin: 02/04/17 02:38 Dose: 4 mg Oxycodone HCl (Oxycodone) 5 - 10 mg PO Q4H PRN PRN Reason: Pain Last Admin: 02/05/17 07:43 Dose: 10 mg Pantoprazole Sodium (Protonix) 40 mg PO ACBREAKFAST [facility] Last Admin: 02/05/17 07:39 Dose: 40 mg Polyethylene Glycol (Miralax) 17 gm PO DAILY PRN PRN Reason: Constipation Last Admin: 02/05/17 09:50 Dose: 17 gm Sodium Chloride (Saline Flush) 10 ml FLUSH ASDIRECTED PRN PRN Reason: Keep Vein Open Tramadol HCl (Ultram) 100 mg PO Q6H PRN PRN Reason: PAIN Last Admin: 02/05/17 00:59 Dose: 100 mg Discontinued Medications Bupivacaine HCl/Epinephrine Bitart (Marcaine 0.5%/Epinephrine 1:200,000) Confirm Administered Dose 50 ml .ROUTE .STK-MED ONE Stop: 02/03/17 09:33 Last Admin: 02/03/17 10:55 Dose: 50 ml Docusate Sodium (Colace) 100 mg PO BID PRN PRN Reason: Constipation Fentanyl (Sublimaze) Confirm Administered Dose 100 mcg .ROUTE .STK-MED ONE Stop: 02/03/17 09:36 Gentamicin Sulfate (Gentamicin) Confirm Administered Dose 240 mg .ROUTE .STK- MED ONE Stop: 02/03/17 09:33 Last Admin: 02/03/17 10:55 Dose: 240 mg Hydromorphone HCl (Dilaudid) 1 mg IM ONETIME ONE Stop: 02/02/17 15:31 Last Admin: 02/02/17 15:37 Dose: 1 mg Hydromorphone HCl (Dilaudid) 1 mg IVPUSH ONETIME ONE Stop: 02/02/17 16:16 Last Admin: 02/02/17 16:45 Dose: 1 mg Hydromorphone HCl (Dilaudid) 0.5 mg IVPUSH Q2H PRN PRN Reason: Pain Last Admin: 02/03/17 14:15 Dose: 0.5 mg Hydromorphone HCl (Dilaudid) 2 mg IVPUSH Q3H PRN PRN Reason: Pain Last Admin: 02/04/17 13:10 Dose: 1 mg Lactated Ringer's (Ringers, Lactated) 1,000 mls @ 150 mls/hr IV ASDIRECTED [facility] Last Admin: 02/02/17 16:44 Dose: 150 mls/hr Lactated Ringer's (Ringers, Lactated) 1,000 mls @ 125 mls/hr IV ASDIRECTED [facility] Last Infusion: 02/04/17 06:25 Dose: Infused Cefazolin Sodium/Dextrose 1 gm (/ Premix) 50 mls @ 100 mls/hr IV ONETIME ONE Stop: 02/03/17 10:29 Last Admin: 02/03/17 13:12 Dose: 100 mls/hr Cefazolin Sodium/Dextrose 1 gm (/ Premix) 50 mls @ 100 mls/hr IV Q8H [facility] Stop: 02/04/17 09:29 Last Admin: 02/04/17 09:16 Dose: 100 mls/hr Acetaminophen 1,000 mg/ Premix 100 mls @ 400 mls/hr IV Q8H [facility] Stop: 02/04/17 16:01 Last Admin: 02/04/17 16:03 Dose: 400 mls/hr Midazolam HCl (Versed 1 Mg/Ml) Confirm Administered Dose 2 mg .ROUTE .STK-MED ONE Stop: 02/03/17 09:36 Midazolam HCl (Versed 1 Mg/Ml) Confirm Administered Dose 2 mg .ROUTE .STK-MED ONE Stop: 02/03/17 10:38 Morphine Sulfate (Morphine) 1 mg IV Q2H PRN PRN Reason: BREAKTHROUGH PAIN Last Admin: 02/04/17 06:50 Dose: 1 mg Ondansetron HCl (Zofran Odt) 4 mg PO ONETIME ONE Stop: 02/02/17 15:30 Last Admin: 02/02/17 15:36 Dose: 4 mg Oxycodone HCl (Oxycodone) 5 mg PO Q4H PRN PRN Reason: Pain (moderate 4-6) Povidone Iodine (Betadine 10% Soln) Confirm Administered Dose 1 ml .ROUTE .STK- MED ONE Stop: 02/03/17 09:33 Last Admin: 02/03/17 10:54 Dose: 1 ml Povidone Iodine (Betadine 10% Soln) Confirm Administered Dose 1 ml .ROUTE .STK- MED ONE Stop: 02/03/17 09:34 Propofol (Diprivan 20 Ml) Confirm Administered Dose 200 mg .ROUTE .STK-MED ONE Stop: 02/03/17 09:36 Propofol (Diprivan 20 Ml) Confirm Administered Dose 200 mg .ROUTE .STK-MED ONE Stop: 02/03/17 11:45 Sodium Chloride (Saline Flush) 10 ml FLUSH ASDIRECTED PRN PRN Reason: Keep Vein Open *Q Meaningful Use (DIS) - VTE *Q VTE Criteria *Q: VTE Pharmacological Contraindications *Q: Patient Scheduled Surgery - Stroke *Q Stroke Criteria *Q: - AMI *Q AMI Criteria *Q:
--- NOTE | 2017-02-05 13:05 | PCM.PN ---
- General Info Date of Service: 02/05/17 Functional Status: Reports: Pain Controlled, Tolerating Diet, Ambulating, Urinating - Patient Data Vitals - Most Recent: Last Vital Signs Temp 35.7 C 02/05/17 10:44 Pulse 84 02/05/17 10:44 Resp 18 02/05/17 10:44 BP 98/62 02/05/17 10:44 Pulse Ox 93 L 02/05/17 10:44 Weight - Most Recent: 135 lb I&O - Last 24 Hours: Intake & Output 02/04/17 02/05/17 02/05/17 22:59 06:59 14:59 Intake Total 1440 1200 Output Total 2100 1925 1125 Balance -660 -1920 75 Med Orders - Current: Current Medications Acetaminophen (Tylenol) 650 mg PO Q4H PRN PRN Reason: Pain (Mild 1-3)/fever Last Admin: 02/05/17 02:59 Dose: 650 mg Acetaminophen (Tylenol) 650 mg RECTAL Q4H PRN PRN Reason: Pain (Mild 1-3)/fever Al Hydroxide/Mg Hydroxide (Mag-Al Plus) 30 ml PO Q4H PRN PRN Reason: DYSPEPSIA Aspirin (Ecotrin) 325 mg PO DAILY [facility] Last Admin: 02/05/17 09:50 Dose: 325 mg Calcium Carbonate/Glycine (Tums) 500 - 1,000 mg PO Q4H PRN PRN Reason: DYSPEPSIA Last Admin: 02/04/17 12:14 Dose: 1,000 mg Cyclobenzaprine HCl (Flexeril) 10 mg PO TID PRN PRN Reason: Muscle Spasm Last Admin: 02/04/17 20:58 Dose: 10 mg Diazepam (Valium) 5 mg IVPUSH Q8H PRN PRN Reason: spasm Last Admin: 02/03/17 17:29 Dose: 5 mg Docusate Sodium (Colace) 100 mg PO BID [facility] Last Admin: 02/05/17 09:50 Dose: 100 mg Hydromorphone HCl (Dilaudid) 0.5 - 1 mg IVPUSH Q3H PRN PRN Reason: Pain Magnesium Hydroxide (Milk Of Magnesia) 30 ml PO Q12H PRN PRN Reason: Constipation Last Admin: 02/04/17 12:14 Dose: 30 ml Ondansetron HCl (Zofran) 4 mg IV Q4H PRN PRN Reason: Nausea/Vomiting Last Admin: 02/04/17 02:38 Dose: 4 mg Oxycodone HCl (Oxycodone) 5 - 10 mg PO Q4H PRN PRN Reason: Pain Last Admin: 02/05/17 12:15 Dose: 10 mg Pantoprazole Sodium (Protonix) 40 mg PO ACBREAKFAST [facility] Last Admin: 02/05/17 07:39 Dose: 40 mg Polyethylene Glycol (Miralax) 17 gm PO DAILY PRN PRN Reason: Constipation Last Admin: 02/05/17 09:50 Dose: 17 gm Sodium Chloride (Saline Flush) 10 ml FLUSH ASDIRECTED PRN PRN Reason: Keep Vein Open Tramadol HCl (Ultram) 100 mg PO Q6H PRN PRN Reason: PAIN Last Admin: 02/05/17 00:59 Dose: 100 mg Discontinued Medications Bupivacaine HCl/Epinephrine Bitart (Marcaine 0.5%/Epinephrine 1:200,000) Confirm Administered Dose 50 ml .ROUTE .STK-MED ONE Stop: 02/03/17 09:33 Last Admin: 02/03/17 10:55 Dose: 50 ml Docusate Sodium (Colace) 100 mg PO BID PRN PRN Reason: Constipation Fentanyl (Sublimaze) Confirm Administered Dose 100 mcg .ROUTE .STK-MED ONE Stop: 02/03/17 09:36 Gentamicin Sulfate (Gentamicin) Confirm Administered Dose 240 mg .ROUTE .STK- MED ONE Stop: 02/03/17 09:33 Last Admin: 02/03/17 10:55 Dose: 240 mg Hydromorphone HCl (Dilaudid) 1 mg IM ONETIME ONE Stop: 02/02/17 15:31 Last Admin: 02/02/17 15:37 Dose: 1 mg Hydromorphone HCl (Dilaudid) 1 mg IVPUSH ONETIME ONE Stop: 02/02/17 16:16 Last Admin: 02/02/17 16:45 Dose: 1 mg Hydromorphone HCl (Dilaudid) 0.5 mg IVPUSH Q2H PRN PRN Reason: Pain Last Admin: 02/03/17 14:15 Dose: 0.5 mg Hydromorphone HCl (Dilaudid) 2 mg IVPUSH Q3H PRN PRN Reason: Pain Last Admin: 02/04/17 13:10 Dose: 1 mg Lactated Ringer's (Ringers, Lactated) 1,000 mls @ 150 mls/hr IV ASDIRECTED [facility] Last Admin: 02/02/17 16:44 Dose: 150 mls/hr Lactated Ringer's (Ringers, Lactated) 1,000 mls @ 125 mls/hr IV ASDIRECTED [facility] Last Infusion: 02/04/17 06:25 Dose: Infused Cefazolin Sodium/Dextrose 1 gm (/ Premix) 50 mls @ 100 mls/hr IV ONETIME ONE Stop: 02/03/17 10:29 Last Admin: 02/03/17 13:12 Dose: 100 mls/hr Cefazolin Sodium/Dextrose 1 gm (/ Premix) 50 mls @ 100 mls/hr IV Q8H [facility] Stop: 02/04/17 09:29 Last Admin: 02/04/17 09:16 Dose: 100 mls/hr Acetaminophen 1,000 mg/ Premix 100 mls @ 400 mls/hr IV Q8H [facility] Stop: 02/04/17 16:01 Last Admin: 02/04/17 16:03 Dose: 400 mls/hr Midazolam HCl (Versed 1 Mg/Ml) Confirm Administered Dose 2 mg .ROUTE .STK-MED ONE Stop: 02/03/17 09:36 Midazolam HCl (Versed 1 Mg/Ml) Confirm Administered Dose 2 mg .ROUTE .STK-MED ONE Stop: 02/03/17 10:38 Morphine Sulfate (Morphine) 1 mg IV Q2H PRN PRN Reason: BREAKTHROUGH PAIN Last Admin: 02/04/17 06:50 Dose: 1 mg Ondansetron HCl (Zofran Odt) 4 mg PO ONETIME ONE Stop: 02/02/17 15:30 Last Admin: 02/02/17 15:36 Dose: 4 mg Oxycodone HCl (Oxycodone) 5 mg PO Q4H PRN PRN Reason: Pain (moderate 4-6) Povidone Iodine (Betadine 10% Soln) Confirm Administered Dose 1 ml .ROUTE .STK- MED ONE Stop: 02/03/17 09:33 Last Admin: 02/03/17 10:54 Dose: 1 ml Povidone Iodine (Betadine 10% Soln) Confirm Administered Dose 1 ml .ROUTE .STK- MED ONE Stop: 02/03/17 09:34 Propofol (Diprivan 20 Ml) Confirm Administered Dose 200 mg .ROUTE .STK-MED ONE Stop: 02/03/17 09:36 Propofol (Diprivan 20 Ml) Confirm Administered Dose 200 mg .ROUTE .STK-MED ONE Stop: 02/03/17 11:45 Sodium Chloride (Saline Flush) 10 ml FLUSH ASDIRECTED PRN PRN Reason: Keep Vein Open - Exam General: Alert, Oriented Extremities: Normal Inspection, Normal Range of Motion, No Pedal Edema, Normal Capillary Refill Peripheral Pulses: 2+: Dorsalis Pedis (L), Dorsalis Pedis (R) Skin: Warm, Dry, Intact Wound/Incisions: Healing Well, Dressing Dry and Intact Neurological: No New Focal Deficit Psy/Mental Status: Alert - Problem List Review Problem List Initiated/Reviewed/Updated: Yes - Plan Plan:: Patient is status post postop day 2 of a left total hemiarthroplasty. She is doing very well. Patient denies any concerns at this time. Pain is controlled with oral pain medication. She is ambulating without any difficulties. She continues to use the walker well. Patient would like to be discharged to fpc stay today. She'll follow-up with orthopedic clinic in 3 weeks for staple removal. She can follow-up sooner if needed.
== END 2017-02-05 12:40 | DRG 470 ==
LOC: JP.ED 14:52 → JP.MS 16:47
PROVIDERS: ADMIT Hospitalist; ATTEND Internal Medicine
PROC: 0SRB0JZ Replacement of Left Hip Joint with Synthetic Substitute, Open Approach (ICD-10-PCS; principal; 2017-02-03)
DX: S72.012A Unspecified intracapsular fracture of left femur, initial encounter for closed fracture (principal); W01.0XXA Fall on same level from slipping, tripping and stumbling without subsequent striking against object, initial encounter; Y92.9 Unspecified place or not applicable; Z87.891 Personal history of nicotine dependence; M54.9 Dorsalgia, unspecified; G89.29 Other chronic pain; M16.12 Unilateral primary osteoarthritis, left hip
CPT/HCPCS: 36415; 72192; 96372; 96374; 99285; A9270; J1170 ×2; J7120; 73502-26-LT; 73502-LT; 80048; 80053; 81001; 83735; 85025; 93005; 94762; 97110-GP; 97162-GP; 97165-GO; C1713; C1776; J0131; J0690; J1580; J2250; J2270; J2405; J2704; J3010; J3360

== ENCOUNTER 2017-04-10 06:58 | Inpatient (IN) | payer MEDICARE ==
[2017-04-10] MEDS ORDERED: Povidone-Iodine 10% Soln 118.25 ML Bottle ONE (07:00)
[2017-04-10] MEDS ORDERED: Thrombin (Bovine) 5,000 Unit Kit ONE (07:00)
[2017-04-10] MEDS ORDERED: Gabapentin 300 MG Cap PO ONE (07:00)
[2017-04-10] MEDS ORDERED: Succinylcholine 200 MG/10 ML MDV ONE (07:03)
[2017-04-10] MEDS ORDERED: Neostigmine Methylsulfate 1 MG/ML 5 ML Syringe ONE (07:03)
[2017-04-10] MEDS ORDERED: Rocuronium 50 MG/5 ML Vial ONE (07:03)
[2017-04-10] MEDS ORDERED: Ondansetron 4 MG/2 ML SDV ONE (07:03)
[2017-04-10] MEDS ORDERED: Glycopyrrolate 0.2 MG/ML 5 ML MDV ONE (07:03)
[2017-04-10] MEDS ORDERED: Propofol 200 MG/20 ML SDV ONE ×4 (07:03→11:37)
[2017-04-10] MEDS ORDERED: Dexamethasone 4 MG/ML SDV ONE (07:03)
[2017-04-10] MEDS ORDERED: Scopolamine 1.5 MG Transdermal Patch TOP SCH (07:30)
[2017-04-10] MEDS: Lactated Ringers 1,000 ML IV SCH ×2 (08:00→19:13)
[2017-04-10] MEDS: Tranexamic Acid 1,000 MG in Sodium Chloride 0.9% 50 ML IV SCH ×3 (08:37→13:43)
[2017-04-10] MEDS: ceFAZolin 2 GM in Sodium Chloride 0.9% 50 ML IV ONE ×2 (08:37→13:42)
[2017-04-10] MEDS ORDERED: Ropivacaine 49.25 ML, Ketorolac 30 MG, EPINEPHrine 0.5 MG, cloNIDine 80 MCG, Sodium Chl... INJECT ONE ×5 (08:45)
[2017-04-10] MEDS ORDERED: Ketamine 500 MG/5 ML MDV IV ONE (08:45)
[2017-04-10] MEDS ORDERED: fentaNYL 250 MCG/5 ML SDV ONE (10:30)
[2017-04-10] MEDS ORDERED: Lactated Ringers 1,000 ML ONE ×2 (10:40)
[2017-04-10] MEDS ORDERED: Aluminum Hydroxide/Magnesium Hydroxide/Simethicone Susp 30 ML Cup PO PRN (12:21)
[2017-04-10] MEDS ORDERED: Naloxone 0.4 MG/ML SDV IVPUSH PRN (12:21)
[2017-04-10] MEDS ORDERED: Sennosides 8.6 MG Tab PO PRN (12:21)
[2017-04-10] MEDS ORDERED: Diazepam 5 MG Tab PO PRN (12:21)
[2017-04-10] MEDS ORDERED: Ondansetron 4 MG/2 ML SDV IVPUSH PRN (12:21)
[2017-04-10] MEDS ORDERED: Zolpidem 5 MG Tab PO PRN (12:21)
[2017-04-10] MEDS: HYDROmorphone 1 MG/ML Syringe IVPUSH PRN (12:32)
[2017-04-10] MEDS ORDERED: Acetaminophen 1,000 MG in Premix Bag 1 BAG IV ONE (13:00)
--- NOTE | 2017-04-10 13:37 | OR ---
DATE OF PROCEDURE: 04/10/2017 PREOPERATIVE DIAGNOSES: 1. Lumbar stenosis at L2-3, L3-4, and L4-5. 2. Left foraminal stenosis at L4-5. 3. Radiculopathy. 4. Neurogenic claudication. POSTOPERATIVE DIAGNOSES: 1. Lumbar stenosis at L2-3, L3-4, and L4-5. 2. Left foraminal stenosis at L4-5. 3. Radiculopathy. 4. Neurogenic claudication. PROCEDURES: 1. Posterolateral fusion at L4-5. 2. Segmental instrumentation at L4-5. 3. Laminectomy at L2-3. 4. Laminectomy at L3-4. 5. Laminectomy at L4-5. 6. Use of operating microscope. 7. Use of allograft obtained from laminectomy site and posterolateral gutter. MINE PATROL: ADA Hair Physician family assistant, ADA Hair, played an essential role in assisting in this case, helping to position the patient, retract structures as needed, as well as suturing and cutting sutures as indicated. Her presence improved patient's safety and decreased operative time. ANESTHESIA: General endotracheal intubation. FLUID: Lactated Ringer's solution. ESTIMATED BLOOD LOSS: 350 mL. COMPLICATIONS: None. SPECIMEN: None. DISCHARGE DISPOSITION: Stable to PACU. INDICATIONS: The patient was seen preoperatively in the clinic. We previously performed a left total hip arthroplasty on the patient. She had been having the above-mentioned symptoms. She failed nonoperative treatment. Preoperative imaging confirmed the above- mentioned diagnosis. Risks and benefits of the procedure were explained to the patient. Informed consent was obtained. DETAILS OF PROCEDURE: The patient was seen preoperatively by myself and the Anesthesia staff in the preop holding area, where the operative site was marked. She was brought to the operative suite by the Anesthesia staff, where general anesthesia was administered. Neuromonitoring leads were placed. A sterile Dolan catheter was placed. The operating microscope was draped in a sterile manner. The fluoroscopy unit was draped in a sterile manner. The patient was then flipped onto the Jose table. All extremities were found to be well padded. The bed was flexed and the head elevated. The back was then prepped and draped in a sterile manner. Time-out was called identifying the correct patient, the correct procedure, the correct site, and that antibiotics had been begun within the appropriate period of time. Lateral fluoroscopy used to identify the pedicles of L2 through L5. A midline incision was made in that area through the skin and down to the deep fascia. Bleeding during the case was controlled with Bovie electrocautery, bipolar electrocautery, and an Aquamantys 5.0 unit. Bovie dissection was used over the spinous processes of L2 through L5 and carried down over the respective facets. This was continued over the transverse processes bilaterally at L4 and L5. Two 35-mm Versa-Trac blades and two 55-mm Versa-Trac blades were used for retraction. Soft tissue was removed from the spinous processes and lamina and then from the area of the L4-5 pars. I then drilled down through the L4-5 facet down to the level of the pars and then placed my screws in the following manner, first on the left and then the right. We first drilled, then used a PediGuard and then confirmed good placement on fluoroscopy. I then used a tap and then placed 6.5 mm x 45 mm screws after confirming no breach with a pedicle probe. I then tested all the screws. The left L4 screw tested at 7. I replaced this screw more and got it to test an 8. I then elected to delay any further work until we had exposed the pedicle at L4 on the left as that was going to be part of our procedure. I then performed the L2-3 and L3-4 laminectomy by removing the interspinous ligaments and supraspinous ligaments, and then removing the bone and saving this for bone mill for the autograft. I then removed the 3/4 of the caudal aspect of the superior lamina at L2 and L3. I then removed the ligamentum flavum, protecting the dura with a long ball and suction tip for a wide laminectomy at the level of the pedicles at these levels. I then confirmed these levels on fluoroscopy. I then focused on L4-5. Unfortunately, this was the site of a previous laminectomy about 40 years ago. She actually had 2 laminectomies at this side. Incidental durotomies occurred and, in fact, a nerve root was attached to a piece of bone on the left, which was carefully from the bone and then placed back into the dura. I then was able to close our durotomies using the operating microscope with a 6-0 [place]ka-Jermaine suture in interlocking manner on the right and then on the left. This was a simple longitudinal tear approximately 3 mm and then on the left, which was approximately 5 mm long, and did an interlocking followed by running suture. I then performed Valsalva maneuvers and then decided to place one additional interrupted suture on the left caudally. The dura was attached caudally to the facet. Since I did not need necessarily to decompress this level, I left it attached as to avoid further durotomy. Valsalva showed no leaks. I performed a total left facetectomy very carefully using medium rongeurs and then 3 Kerrisons. I took a great deal of time to do this because of the attachment of the dura to the facet and pars at this level from the previous laminectomies. I was able to identify the exiting nerve root on the left and then felt the pedicle. My screw site did abut the nerve root and so I made it just slightly cranial. Unfortunately, it was necessary to have the nerve nearly in contact with the dura, but this did test at a 17 after placing a 7.5 x 45 mm screw. We then copiously irrigated with saline. I then used DuraGen to cover my durotomies and then I used DuraGen on the medial aspect of the dura and next to the nerve root around the L4 screw, which was so close to the dura to help protect it and form some fibrous tissue. I then placed DuraGen over our durotomy sites followed by DuraSeal and then performed another Valsalva maneuver, which did not show any extravasation of cerebrospinal fluid. After this had been accomplished, I attached my Tulips and rods and locking caps and torqued into specification. I took final films. We then closed our incision with #1 STRATAFIX after placing a packet and a half of Gelfoam powder. I also placed some FloSeal during the procedure and tamped this dry with a Ray-Cash. We then closed the deep subcu with #2 STRATAFIX, followed by 3-0 STRATAFIX, followed by glue and a sterile dressing. The patient was then flipped back onto her hospital bed and taken to the PACU in a stable condition. Neuromonitoring leads were normal throughout the case. Blayne Hoyt DO /[id number]
[2017-04-10] MEDS: VERIFY SCOPOLAMINE PATCH TOP SCH (13:42)
[2017-04-10] MEDS: ceFAZolin 1 GM in Premix Bag 1 BAG IV SCH ×2 (16:13→22:28)
[2017-04-10] MEDS ORDERED: Sodium Chloride 0.9% 1,000 ML IV STA (21:39)
[2017-04-10] MEDS: oxyCODONE 5 MG Tab PO PRN (22:34)
[2017-04-11] MEDS: Lactated Ringers 1,000 ML IV SCH (02:20)
[2017-04-11] MEDS: oxyCODONE 5 MG Tab PO PRN ×2 (04:40→08:45)
[2017-04-11] MEDS: ceFAZolin 1 GM in Premix Bag 1 BAG IV SCH (06:32)
[2017-04-11] MEDS: VERIFY SCOPOLAMINE PATCH TOP SCH (08:45)
--- NOTE | 2017-04-11 09:50 | PCM.PN ---
- General Info Date of Service: 04/11/17 Admission Dx/Problem (Free Text): Patient is POD 1 of lumbar fusion. She is doing well. She denies any issues at this time. Nursing did state that they had to reinforce her dressing multiple times last night but note improvement. Functional Status: Reports: Pain Controlled, Tolerating Diet, Ambulating, Urinating - Review of Systems General: Reports: No Symptoms Musculoskeletal: Reports: Back Pain Skin: Reports: No Symptoms Neurological: Reports: No Symptoms - Patient Data Vitals - Most Recent: Last Vital Signs Temp 37.3 C 04/11/17 07:16 Pulse 68 04/11/17 07:16 Resp 16 04/11/17 07:16 BP 92/45 L 04/11/17 07:16 Pulse Ox 96 04/11/17 07:28 Weight - Most Recent: 124 lb I&O - Last 24 Hours: Intake & Output 04/10/17 04/11/17 04/11/17 22:59 06:59 14:59 Intake Total 1763 2568 Output Total 900 1210 700 Balance 863 1358 -700 Lab Results Last 24 Hours: Laboratory Results - last 24 hr 04/11/17 04/11/17 Range/Units 06:09 06:09 WBC 10.9 (4.5-11.0) K/uL RBC 3.52 (3.30-5.50) M/uL Hgb 10.2 L D (12.0-15.0) g/dL Hct 32.6 L (36.0-48.0) % MCV 93 (80-98) fL MCH 29 (27-31) pg MCHC 31 L (32-36) % Plt Count 230 (150-400) K/uL Neut % (Auto) 72 H (36-66) % Lymph % (Auto) 17 L (24-44) % [place] % (Auto) 11 H (2-6) % Eos % (Auto) 0 L (2-4) % Baso % (Auto) 0 (0-1) % Sodium 141 (140-148) mmol/L Potassium 4.3 (3.6-5.2) mmol/L Chloride 107 (100-108) mmol/L Carbon Dioxide 27 (21-32) mmol/L Anion Gap 6.9 (5.0-14.0) mmol/L BUN 6 L (7-18) mg/dL Creatinine 0.7 (0.6-1.0) mg/dL Est Cr Clr Drug Dosing 62.73 mL/min Estimated GFR (MDRD) > 60 (>60) Glucose 100 (74-106) mg/dL Calcium 8.3 L (8.5-10.1) mg/dL Med Orders - Current: Current Medications Al Hydroxide/Mg Hydroxide (Mag-Al Plus) 30 ml PO Q4H PRN PRN Reason: Indigestion Diazepam (Valium.) 5 mg PO Q6H PRN PRN Reason: Spasms Gentamicin Sulfate (Gentak 0.3% Ophth Oint) 0 gm [facility] Last Admin: 04/11/17 08:46 Dose: 1 applic Hydromorphone HCl (Dilaudid) 1 mg IVPUSH Q2H PRN PRN Reason: Pain Stop: 04/11/17 12:21 Last Admin: 04/10/17 12:32 Dose: 1 mg Lactated Ringer's (Ringers, Lactated) 1,000 mls @ 0 mls/hr IV ASDIRECTED [facility] PRN Reason: KVO Last Admin: 04/11/17 02:20 Dose: 100 mls/hr Magnesium Hydroxide (Milk Of Magnesia) 30 ml PO BID PRN PRN Reason: Constipation Naloxone HCl (Narcan) 0.2 mg IVPUSH ONETIME PRN PRN Reason: Oversedation Verify Scopolamine (Patch) 0 each TOP DAILY [facility] Last Admin: 04/11/17 08:45 Dose: 1 each Ondansetron HCl (Zofran) 8 mg IVPUSH Q4H PRN PRN Reason: Nausea/Vomiting Oxycodone HCl (Oxycodone) 10 mg PO Q4H PRN PRN Reason: Pain Stop: 04/11/17 12:21 Last Admin: 04/11/17 08:45 Dose: 10 mg Oxycodone/Acetaminophen (Percocet 325-5 Mg) 2 tab PO Q4H PRN PRN Reason: Pain Scopolamine (Transderm-Scop) 1.5 mg TOP Q72H [facility] Stop: 04/13/17 05:30 Last Admin: 04/10/17 07:34 Dose: 1.5 mg Senna (Senna) 8.6 mg PO BID PRN PRN Reason: Constipation Zolpidem Tartrate (Ambien) 5 mg PO BEDTIME PRN PRN Reason: Sleep Discontinued Medications Ropivacaine 49.25 ml/Ketorolac Tromethamine 30 mg/Epinephrine HCl 0.5 mg/ Clonidine HCl 80 mcg/ Sodium Chloride 48.45 ml 0 ml INJECT ONETIME ONE Stop: 04/10/17 08:46 Last Admin: 04/10/17 08:52 Dose: 100 ml Dexamethasone (Dexamethasone) Confirm Administered Dose 4 mg .ROUTE .STK-MED ONE Stop: 04/10/17 07:04 Fentanyl (Sublimaze) Confirm Administered Dose 250 mcg .ROUTE .STK-MED ONE Stop: 04/10/17 10:31 Fentanyl Citrate (Fentanyl) Confirm Administered Dose 500 mcg .ROUTE .STK-MED ONE Stop: 04/10/17 07:04 Gabapentin (Neurontin) 300 mg PO ONETIME ONE Stop: 04/10/17 07:01 Last Admin: 04/10/17 07:34 Dose: 300 mg Gentamicin Sulfate (Gentak 0.3% Ophth Oint) 0.1 gm [facility] Glycopyrrolate (Robinul) Confirm Administered Dose 1 mg .ROUTE .STK-MED ONE Stop: 04/10/17 07:04 Cefazolin Sodium 2 gm/ Sodium (Chloride) 50 mls @ 100 mls/hr IV ONETIME ONE Stop: 04/10/17 09:14 Last Admin: 04/10/17 13:42 Dose: Not Given Tranexamic Acid 1,000 mg/ (Sodium Chloride) 60 mls @ 240 mls/hr IV Q3H [facility] Stop: 04/10/17 11:59 Last Admin: 04/10/17 13:43 Dose: Not Given Ketamine HCl 100 mg/ Sodium (Chloride) 100 mls @ 16 mls/hr IV ASDIRECTED [facility] Stop: 04/10/17 10:45 Lactated Ringer's (Ringers, Lactated) Confirm Administered Dose 1,000 mls @ as directed .ROUTE .STK-MED ONE Stop: 04/10/17 10:41 Lactated Ringer's (Ringers, Lactated) Confirm Administered Dose 1,000 mls @ as directed .ROUTE .STK-MED ONE Stop: 04/10/17 10:41 Acetaminophen 1,000 mg/ Premix 100 mls @ 400 mls/hr IV NOW ONE Stop: 04/10/17 13:14 Last Admin: 04/10/17 12:48 Dose: 400 mls/hr Cefazolin Sodium/Dextrose 1 gm (/ Premix) 50 mls @ 100 mls/hr IV Q8H [facility] Stop: 04/11/17 06:59 Last Admin: 04/11/17 06:32 Dose: 100 mls/hr Sodium Chloride (Normal Saline) 1,000 mls @ 250 mls/hr IV NOW STA Stop: 04/11/17 01:38 Last Admin: 04/10/17 21:42 Dose: 250 mls/hr Ketamine HCl (Ketalar) 27 mg IV ONETIME ONE Stop: 04/10/17 08:46 Last Admin: 04/10/17 13:42 Dose: Not Given Neostigmine Methylsulfate (Neostigmine) Confirm Administered Dose 5 mg .ROUTE .STK-MED ONE Stop: 04/10/17 07:04 Ondansetron HCl (Zofran) Confirm Administered Dose 4 mg .ROUTE .STK-MED ONE Stop: 04/10/17 07:04 Povidone Iodine (Betadine 10% Soln) Confirm Administered Dose 1 ml .ROUTE .STK- MED ONE Stop: 04/10/17 07:01 Last Admin: 04/10/17 08:54 Dose: 40 ml Propofol (Diprivan 20 Ml) Confirm Administered Dose 200 mg .ROUTE .STK-MED ONE Stop: 04/10/17 07:04 Propofol (Diprivan 20 Ml) Confirm Administered Dose 600 mg .ROUTE .STK-MED ONE Stop: 04/10/17 09:32 Propofol (Diprivan 20 Ml) Confirm Administered Dose 200 mg .ROUTE .STK-MED ONE Stop: 04/10/17 11:38 Propofol (Diprivan 20 Ml) Confirm Administered Dose 200 mg .ROUTE .STK-MED ONE Stop: 04/10/17 11:38 Rocuronium [place] (Zemuron) Confirm Administered Dose 50 mg .ROUTE .STK-MED ONE Stop: 04/10/17 07:04 Succinylcholine Chloride (Quelicin) Confirm Administered Dose 200 mg .ROUTE .STK -MED ONE Stop: 04/10/17 07:04 Thrombin (Thrombin-Jmi) Confirm Administered Dose 15,000 unit .ROUTE .STK-MED ONE Stop: 04/10/17 07:01 Last Admin: 04/10/17 08:54 Dose: 10,000 unit - Exam General: Alert, Oriented Back Exam: Normal Inspection, Decreased Range of Motion (due to recent surgery) Extremities: Normal Inspection, Normal Range of Motion, Non-Tender, No Pedal Edema, Normal Capillary Refill Peripheral Pulses: 2+: Dorsalis Pedis (L), Dorsalis Pedis (R) Skin: Warm, Dry, Intact Wound/Incisions: Healing Well, Dressing Dry and Intact Neurological: No New Focal Deficit, Normal Gait, Strength Equal Bilateral, Reflexes Equal Bilateral Psy/Mental Status: Alert - Problem List Review Problem List Initiated/Reviewed/Updated: Yes - My Orders Last 24 Hours: My Active Orders 04/10/17 12:21 Patient Status [ADT] Urgent Ambulate [RC] QID Head of Bed Elevation [RC] ASDIRECTED Immobilizer [RC] ASDIRECTED Intake and Output [RC] QSHIFT Neurovascular Check [RC] Q4HR Notify Provider Intake and Out [RC] ASDIRECTED Notify Provider Laboratory Res [RC] ASDIRECTED Notify Provider Status Change [RC] ASDIRECTED Notify Provider Vital Signs [RC] ASDIRECTED Oxygen Therapy [RC] .PRN Pulse Oximetry [RC] CONTINUOUS Up to Chair [RC] QID Vital Signs [RC] Q4HR Wound Care [RC] Q12H OT Evaluation and Treatment [CONS] Routine PT Evaluation and Treatment [CONS] Routine Alum Hydrox/Mag Hydrox/Simeth [Mag-Al Plus] 30 ml PO Q4H PRN Diazepam [Valium] 5 mg PO Q6H PRN HYDROmorphone [Dilaudid] 1 mg IVPUSH Q2H PRN Magnesium Hydroxide [Milk of Magnesia] 30 ml PO BID PRN Naloxone [Narcan] 0.2 mg IVPUSH ONETIME PRN Ondansetron [Zofran] 8 mg IVPUSH Q4H PRN Sennosides [Senna] 8.6 mg PO BID PRN Zolpidem [Ambien] 5 mg PO BEDTIME PRN oxyCODONE 10 mg PO Q4H PRN Convert IV to Saline Lock [OM.PC] Routine Encourage Fluids [OM.PC] Routine Sequential Compression Device [OM.PC] Routine Sequential Compression Device [OM.PC] Stat Resuscitation Status Routine 04/10/17 Lunch Advance Diet Instructions [DIET] 04/11/17 12:21 Acetaminophen/oxyCODONE [Percocet 325-5 MG] 2 tab PO Q4H PRN - Plan Plan:: Patient will continue with oral pain medications. She will work with PT/OT for strengthening. We will plan to dc her tomorrow.
[2017-04-11] MEDS: Ferrous Sulfate 325 MG Tab PO SCH ×2 (10:38→16:39)
[2017-04-11] MEDS ORDERED: Docusate Sodium 100 MG Cap PO PRN (10:42)
[2017-04-11] MEDS: HYDROmorphone 1 MG/ML Syringe IVPUSH PRN (12:03)
[2017-04-11] MEDS: Acetaminophen/oxyCODONE 325-5 MG Tab PO PRN ×2 (12:51→19:02)
[2017-04-12] MEDS: Acetaminophen/oxyCODONE 325-5 MG Tab PO PRN ×6 (00:52→23:22)
[2017-04-12] MEDS: Magnesium Hydroxide 400 MG/5 ML Susp 30 ML Cup PO PRN ×2 (05:36→11:58)
[2017-04-12] MEDS: VERIFY SCOPOLAMINE PATCH TOP SCH (08:19)
[2017-04-12] MEDS: Ferrous Sulfate 325 MG Tab PO SCH ×2 (08:19→16:08)
[2017-04-12] MEDS ORDERED: Bisacodyl 10 MG Supp RECTAL PRN (09:26)
[2017-04-12] MEDS ORDERED: Sodium Phosphate,Monobasic/Sodium Phosphate,Dibasic Enema 133 ML Bottle RECTAL ONE (10:00)
[2017-04-12] MEDS ORDERED: Magnesium Citrate Solution 296 ML Bottle PO ONE (15:30)
[2017-04-13] MEDS: Acetaminophen/oxyCODONE 325-5 MG Tab PO PRN ×4 (03:01→16:37)
[2017-04-13] MEDS: Ferrous Sulfate 325 MG Tab PO SCH (08:38)
[2017-04-13] MEDS: VERIFY SCOPOLAMINE PATCH TOP SCH (08:42)
[2017-04-13 15:14] VITALS: BP 97/70
--- NOTE | 2017-04-17 09:55 | PCM.DCSUM1 ---
Discharge Summary - Hospital Course Free Text/Narrative:: Patient is doing very well. She did have a bowel movement throughout the evening. She states otherwise she is doing very well at this time. She is animated without any difficulties. Pain is under control with oral pain medication. She is status postop day 3 of a lumbar fusion. - Discharge Data Discharge Date: 04/13/17 Discharge Disposition: Home, Self-Care 01 Condition: Good - Patient Summary/Data Consults: Consultations 04/10/17 12:21 OT Evaluation and Treatment [CONS] Routine Please Evaluate and Treat. OT Reason for Consult: Strengthening This query below is only for informational purposes and is not editable. PT Evaluation and Treatment [CONS] Routine Please Evaluate and Treat. PT Reason for Consult: Strengthening This query below is only for informational purposes and is not editable. - Patient Instructions Diet: Usual Diet as Tolerated Activity: Apply Ice, As Tolerated Driving: Do Not Drive Showering/Bathing: May Shower, No Tub Bathing/Swimming Wound/Incision Care: Keep Operative Site/Wound Site Clean and Dry, Change Dressing Daily Notify Provider of: Fever, Increased Pain, Swelling and Redness, Drainage, Nausea and/or Vomiting - Discharge Plan Prescriptions/Med Rec: Acetaminophen/oxyCODONE [Percocet 325-5 MG] 1 tab PO Q6HR #90 tablet Home Medications: Home Meds Acetaminophen/oxyCODONE [Percocet 325-5 MG] 1 tab PO Q6HR #90 tablet 04/12/17 [ Rx] Patient Handouts: Acetaminophen; Oxycodone tablets, Spinal Fusion, Care After, [id number], Preventing Constipation After Surgery Referrals: Litzy Us NP [Nurse Practitioner] - 05/10/17 9:45 am (Appt with Litzy Us 05/10/17 at 0945) - Discharge Summary/Plan Comment DC Time >30 min.: Yes Discharge Summary/Plan Comment: Patient is doing very well at this time. We'll discharge her home. She'll follow up with orthopedic services in 1 month. She is notify us if she has any other issues. We'll send her home on Percocet at this time. - Patient Data Vitals - Most Recent: Last Vital Signs Temp 37.0 C 04/13/17 16:47 Pulse 77 04/13/17 15:13 Resp 20 04/13/17 15:13 BP 97/70 04/13/17 15:13 Pulse Ox 96 04/13/17 15:13 Weight - Most Recent: 124 lb STEVE Results - Last 24 hrs: Microbiology 04/12/17 01:15 Aerobic Blood Culture - Final Blood - Venous - Lab Draw NO GROWTH AFTER 5 DAYS Anaerobic Blood Culture - Final NO GROWTH AFTER 5 DAYS 04/12/17 01:15 Aerobic Blood Culture - Final Blood - Venous NO GROWTH AFTER 5 DAYS Anaerobic Blood Culture - Final NO GROWTH AFTER 5 DAYS Med Orders - Current: Current Medications Discontinued Medications Al Hydroxide/Mg Hydroxide (Mag-Al Plus) 30 ml PO Q4H PRN PRN Reason: Indigestion Bisacodyl (Dulcolax) 10 mg RECTAL BID PRN PRN Reason: Constipation Last Admin: 04/12/17 13:19 Dose: 10 mg Ropivacaine 49.25 ml/Ketorolac Tromethamine 30 mg/Epinephrine HCl 0.5 mg/ Clonidine HCl 80 mcg/ Sodium Chloride 48.45 ml 0 ml INJECT ONETIME ONE Stop: 04/10/17 08:46 Last Admin: 04/10/17 08:52 Dose: 100 ml Dexamethasone (Dexamethasone) Confirm Administered Dose 4 mg .ROUTE .STK-MED ONE Stop: 04/10/17 07:04 Diazepam (Valium.) 5 mg PO Q6H PRN PRN Reason: Spasms Docusate Sodium (Colace) 100 mg PO BID PRN PRN Reason: Constipation Last Admin: 04/11/17 12:04 Dose: 100 mg Fentanyl (Sublimaze) Confirm Administered Dose 250 mcg .ROUTE .STK-MED ONE Stop: 04/10/17 10:31 Fentanyl Citrate (Fentanyl) Confirm Administered Dose 500 mcg .ROUTE .STK-MED ONE Stop: 04/10/17 07:04 Ferrous Sulfate (Ferrous Sulfate) 325 mg PO BIDMEALS [facility] Last Admin: 04/13/17 08:38 Dose: 325 mg Gabapentin (Neurontin) 300 mg PO ONETIME ONE Stop: 04/10/17 07:01 Last Admin: 04/10/17 07:34 Dose: 300 mg Gentamicin Sulfate (Gentak 0.3% Ophth Oint) 0.1 gm [facility] Gentamicin Sulfate (Gentak 0.3% Ophth Oint) 0 gm [facility] Last Admin: 04/13/17 16:40 Dose: 1 applic Glycopyrrolate (Robinul) Confirm Administered Dose 1 mg .ROUTE .STK-MED ONE Stop: 04/10/17 07:04 Hydromorphone HCl (Dilaudid) 1 mg IVPUSH Q2H PRN PRN Reason: Pain Stop: 04/11/17 12:21 Last Admin: 04/11/17 12:03 Dose: 1 mg Cefazolin Sodium 2 gm/ Sodium (Chloride) 50 mls @ 100 mls/hr IV ONETIME ONE Stop: 04/10/17 09:14 Last Admin: 04/10/17 13:42 Dose: Not Given Tranexamic Acid 1,000 mg/ (Sodium Chloride) 60 mls @ 240 mls/hr IV Q3H [facility] Stop: 04/10/17 11:59 Last Admin: 04/10/17 13:43 Dose: Not Given Ketamine HCl 100 mg/ Sodium (Chloride) 100 mls @ 16 mls/hr IV ASDIRECTED [facility] Stop: 04/10/17 10:45 Lactated Ringer's (Ringers, Lactated) 1,000 mls @ 0 mls/hr IV ASDIRECTED [facility] PRN Reason: KVO Last Admin: 04/11/17 02:20 Dose: 100 mls/hr Lactated Ringer's (Ringers, Lactated) Confirm Administered Dose 1,000 mls @ as directed .ROUTE .STK-MED ONE Stop: 04/10/17 10:41 Lactated Ringer's (Ringers, Lactated) Confirm Administered Dose 1,000 mls @ as directed .ROUTE .STK-MED ONE Stop: 04/10/17 10:41 Acetaminophen 1,000 mg/ Premix 100 mls @ 400 mls/hr IV NOW ONE Stop: 04/10/17 13:14 Last Admin: 04/10/17 12:48 Dose: 400 mls/hr Cefazolin Sodium/Dextrose 1 gm (/ Premix) 50 mls @ 100 mls/hr IV Q8H [facility] Stop: 04/11/17 06:59 Last Admin: 04/11/17 06:32 Dose: 100 mls/hr Sodium Chloride (Normal Saline) 1,000 mls @ 250 mls/hr IV NOW STA Stop: 04/11/17 01:38 Last Admin: 04/10/17 21:42 Dose: 250 mls/hr Ketamine HCl (Ketalar) 27 mg IV ONETIME ONE Stop: 04/10/17 08:46 Last Admin: 04/10/17 13:42 Dose: Not Given Magnesium Citrate (Citrate Of Magnesia) 296 ml PO ONETIME ONE Stop: 04/12/17 15:31 Last Admin: 04/12/17 16:08 Dose: 296 ml Magnesium Hydroxide (Milk Of Magnesia) 30 ml PO BID PRN PRN Reason: Constipation Last Admin: 04/12/17 11:58 Dose: 30 ml Naloxone HCl (Narcan) 0.2 mg IVPUSH ONETIME PRN PRN Reason: Oversedation Neostigmine Methylsulfate (Neostigmine) Confirm Administered Dose 5 mg .ROUTE .STK-MED ONE Stop: 04/10/17 07:04 Verify Scopolamine (Patch) 0 each TOP DAILY [facility] Last Admin: 04/13/17 08:42 Dose: Not Given Ondansetron HCl (Zofran) Confirm Administered Dose 4 mg .ROUTE .STK-MED ONE Stop: 04/10/17 07:04 Ondansetron HCl (Zofran) 8 mg IVPUSH Q4H PRN PRN Reason: Nausea/Vomiting Oxycodone HCl (Oxycodone) 10 mg PO Q4H PRN PRN Reason: Pain Stop: 04/11/17 12:21 Last Admin: 04/11/17 08:45 Dose: 10 mg Oxycodone/Acetaminophen (Percocet 325-5 Mg) 2 tab PO Q4H PRN PRN Reason: Pain Last Admin: 04/13/17 16:37 Dose: 2 tab Povidone Iodine (Betadine 10% Soln) Confirm Administered Dose 1 ml .ROUTE .STK- MED ONE Stop: 04/10/17 07:01 Last Admin: 04/10/17 08:54 Dose: 40 ml Propofol (Diprivan 20 Ml) Confirm Administered Dose 200 mg .ROUTE .STK-MED ONE Stop: 04/10/17 07:04 Propofol (Diprivan 20 Ml) Confirm Administered Dose 600 mg .ROUTE .STK-MED ONE Stop: 04/10/17 09:32 Propofol (Diprivan 20 Ml) Confirm Administered Dose 200 mg .ROUTE .STK-MED ONE Stop: 04/10/17 11:38 Propofol (Diprivan 20 Ml) Confirm Administered Dose 200 mg .ROUTE .STK-MED ONE Stop: 04/10/17 11:38 Rocuronium [place] (Zemuron) Confirm Administered Dose 50 mg .ROUTE .STK-MED ONE Stop: 04/10/17 07:04 Scopolamine (Transderm-Scop) 1.5 mg TOP Q72H [facility] Stop: 04/13/17 05:30 Last Admin: 04/10/17 07:34 Dose: 1.5 mg Senna (Senna) 8.6 mg PO BID PRN PRN Reason: Constipation Sodium Biphosphate/Sodium Phosphate (Fleet Enema) 133 ml RECTAL ONETIME ONE Stop: 04/12/17 10:01 Last Admin: 04/12/17 10:02 Dose: 133 ml Succinylcholine Chloride (Quelicin) Confirm Administered Dose 200 mg .ROUTE .STK -MED ONE Stop: 04/10/17 07:04 Thrombin (Thrombin-Jmi) Confirm Administered Dose 15,000 unit .ROUTE .STK-MED ONE Stop: 04/10/17 07:01 Last Admin: 04/10/17 08:54 Dose: 10,000 unit Zolpidem Tartrate (Ambien) 5 mg PO BEDTIME PRN PRN Reason: Sleep - Exam General: Reports: Alert, Oriented Back Exam: Reports: Normal Inspection, Full Range of Motion Extremities: Normal Inspection, Normal Range of Motion, No Pedal Edema, Normal Capillary Refill Skin: Reports: Warm, Dry, Intact Wound/Incisions: Reports: Healing Well, Dressing Dry and Intact Neurological: Reports: No New Focal Deficit, Strength Equal Bilateral, Reflexes Equal Bilateral Psy/Mental Status: Reports: Alert *Q Meaningful Use (DIS) - VTE *Q VTE Criteria *Q: - Stroke *Q Stroke Criteria *Q: - AMI *Q AMI Criteria *Q:
== END 2017-04-13 18:00 | disposition home or self-care (01) | DRG 460 ==
LOC: JP.MS 06:58 → JP.SDS 06:58 → EDSTATUS 08:30 → JP.MS 12:21
PROVIDERS: ADMIT Orthopaedic Surgery; ATTEND Orthopaedic Surgery
PROC: 0SG00AJ Fusion of Lumbar Vertebral Joint with Interbody Fusion Device, Posterior Approach, Anterior Column, Open Approach (ICD-10-PCS; principal; 2017-04-10)
PROC: 0QB00ZZ Excision of Lumbar Vertebra, Open Approach (ICD-10-PCS; 2017-04-10)
PROC: 01NB0ZZ Release Lumbar Nerve, Open Approach (ICD-10-PCS; 2017-04-10)
PROC: 00NY0ZZ Release Lumbar Spinal Cord, Open Approach (ICD-10-PCS; 2017-04-10)
PROC: 00QT0ZZ Repair Spinal Meninges, Open Approach (ICD-10-PCS; 2017-04-10)
DX: M48.062 Spinal stenosis, lumbar region with neurogenic claudication (principal); G97.41 Accidental puncture or laceration of dura during a procedure; M51.26 Other intervertebral disc displacement, lumbar region; M54.16 Radiculopathy, lumbar region; Z96.642 Presence of left artificial hip joint
CPT/HCPCS: 36415; 76001; 80048; 85025; 86850; 86900; 86901; 87040; 94762; 97140-GP; 97162-GP; 97165-GO; 97530-GP; 97535-GP; 97760-GP; A9270-GY; C1713; C1763; J0131; J0171; J0330; J0690; J0735; J1100; J1170; J1885; J2405; J2704; J2710; J2795; J3010; J7040; J7050; J7120

== ENCOUNTER 2017-12-24 16:13 | Emergency (ER) | payer MEDICARE ==
[2017-12-24] MEDS ORDERED: Nitroglycerin 0.4 MG Tab.SL ONE (16:16)
[2017-12-24] MEDS ORDERED: Aspirin 325 MG Tab.EC ONE (16:16)
[2017-12-24] MEDS ORDERED: Aspirin 81 MG Tab.Chew ONE ×2 (16:16→16:17)
[2017-12-24] MEDS ORDERED: Ondansetron 4 MG/2 ML SDV ONE (16:29)
[2017-12-24] MEDS ORDERED: HYDROmorphone 1 MG/ML Syringe IVPUSH ONE (16:32)
--- NOTE | 2017-12-24 16:44 | EDM.PDOC ---
ED HPI GENERAL MEDICAL PROBLEM - General Chief Complaint: Chest Pain Stated Complaint: CHEST PAINS Time Seen by Provider: 12/24/17 16:15 Source of Information: Reports: Patient, Old Records, RN History Limitations: Reports: No Limitations - History of Present Illness INITIAL COMMENTS - FREE TEXT/NARRATIVE: 72 yo female presents with intermittent sometimes severe epigastric pain that began about 2 pm today. She has had a few episodes of vomiting associated with this pain. Had cinnamon toast earlier today only. Still has her gallbladder. Has no hx of CAD, no FHx of CAD, and quit smoking about 7 yrs ago. No DM or HTN. Is here only in the [place]. Onset: Today Onset Date: 12/24/17 Onset Time: 14:00 Duration: Waxing/Waning Location: Reports: Abdomen (epigastrium) Quality: Reports: Ache Severity: Severe Improves with: Reports: Other (waxes and wanes without apparent cause.) Worsens with: Reports: Other (unknown) Context: Reports: Other (uncertain) Associated Symptoms: Reports: Diaphoresis (with severe nausea.), Nausea/ Vomiting. 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: Musculoskeletal History: Reports: Back Pain, Chronic, Fracture Neurological History: Reports: None Oncologic (Cancer) History: Reports: Squamous Cell Carcinoma Dermatologic History: Reports: None - Infectious Disease History Infectious Disease History: Reports: Chicken Pox, Measles, Mumps, Rubella - Past Surgical History HEENT Surgical History: Reports: Cataract Surgery, LASIK, Visual Neurological Surgical History: Reports: C-Spine, Laminectomy, Lumbar Spine Musculoskeletal Surgical History: Reports: Hip Replacement Oncologic Surgical History: Reports: None Dermatological Surgical History: Reports: Skin Biopsy Social & Family History - Family History Family Medical History: Noncontributory GI: Reports: PUD Oncologic: Reports: Lung - Caffeine Use Caffeine Use: Reports: Coffee Caffeine Use Comment: 1-1.5 cups/day ED ROS GENERAL - Review of Systems Review Of Systems: See Below Constitutional: Reports: No Symptoms HEENT: Reports: No Symptoms Respiratory: Reports: No Symptoms Cardiovascular: Reports: No Symptoms Endocrine: Reports: No Symptoms GI/Abdominal: Reports: Abdominal Pain (epigastric), Nausea, Vomiting. Denies: Black Stool, Bloody Stool, Constipation, Diarrhea, Distension, Flatus, Hematemesis, Hematochezia : Reports: No Symptoms Musculoskeletal: Reports: No Symptoms Skin: Reports: No Symptoms Neurological: Reports: No Symptoms Psychiatric: Reports: No Symptoms ED EXAM, GI/ABD - Physical Exam Exam: See Below Exam Limited By: No Limitations General Appearance: Alert, WD/WN, Mild Distress Eyes: Bilateral: Normal Appearance Ears: Normal External Exam, Normal Canal, Hearing Grossly Normal, Normal TMs Nose: Normal Inspection, Normal Mucosa, No Blood Throat/Mouth: Normal Inspection, Normal Lips, Normal Oropharynx, Normal Voice, No Airway Compromise Head: Atraumatic, Normocephalic Neck: Normal Inspection, Supple, Non-Tender Respiratory/Chest: No Respiratory Distress, Lungs Clear, Normal Breath Sounds, No Accessory Muscle Use Cardiovascular: Regular Rate, Rhythm, No Edema GI/Abdominal Exam: Normal Bowel Sounds, Soft, No Distention, Tender (epigastric) Back Exam: Normal Inspection. No: CVA Tenderness (R), CVA Tenderness (L) Extremities: Normal Inspection, Normal Range of Motion, Non-Tender, No Pedal Edema Neurological: Alert, Oriented, CN II-XII Intact, Normal Cognition, No Motor/ Sensory Deficits Psychiatric: Normal Affect, Normal Mood Skin Exam: Warm, Dry, Intact, Normal Color, No Rash Lymphatic: No Adenopathy EKG INTERPRETATION EKG Date: 12/24/17 Time: 16:15 Rhythm: NSR Rate (Beats/Min): 65 [place]: Normal P-Wave: Present QRS: LBBB (not new.) ST-T: Normal QT: Normal Comparison: No Change Course - Vital Signs Text/Narrative:: NTG 0.4 mg SL-no change GB US-distended GB, common duct upper limit of normal. Upright abd-neg GI cocktail po-improved Last Recorded V/S: Last Vital Signs Temp 35.8 C 07/16/18 16:26 Pulse 58 L 12/24/17 17:57 Resp 15 12/24/17 17:57 BP 130/65 12/24/17 17:57 Pulse Ox 98 12/24/17 17:57 - Orders/Labs/Meds Orders: Active Orders 24 hr Category Date Time Status Cardiac Monitoring [RC] .As Directed Care 12/24/17 16:33 Active EKG Documentation Completion [RC] ASDIRECTED Care 12/24/17 16:33 Active Abdomen 1V Upright [CR] Stat Exams 12/24/17 17:46 Ordered Abdomen Ltd [US] Stat Exams 12/24/17 17:11 Taken Sodium Chloride 0.9% [Normal Saline] 1,000 ml Med 12/24/17 17:21 Active IV .BOLUS EKG 12 Lead [EK] Routine Ther 12/24/17 16:33 Ordered Medication Orders Sodium Chloride (Normal Saline) 1,000 mls @ 1,000 mls/hr IV .BOLUS ONE Stop: 12/24/17 18:20 Last Admin: 12/24/17 17:23 Dose: 1,000 mls/hr Labs: Laboratory Tests 12/24/17 12/24/17 Range/Units 16:16 16:32 WBC 14.5 H (4.5-11.0) K/uL RBC 4.82 (3.30-5.50) M/uL Hgb 14.5 D (12.0-15.0) g/dL Hct 42.2 (36.0-48.0) % MCV 88 (80-98) fL MCH 30 (27-31) pg MCHC 34 (32-36) % Plt Count 305 (150-400) K/uL Sodium 140 (140-148) mmol/L Potassium 3.5 L (3.6-5.2) mmol/L Chloride 103 (100-108) mmol/L Carbon Dioxide 26 (21-32) mmol/L Anion Gap 14.5 H (5.0-14.0) mmol/L BUN 8 (7-18) mg/dL Creatinine 1.0 (0.6-1.0) mg/dL Est Cr Clr Drug Dosing TNP Estimated GFR (MDRD) 54 L (>60) Glucose 121 H (74-106) mg/dL Calcium 9.3 (8.5-10.1) mg/dL Total Bilirubin 0.5 D (0.2-1.0) mg/dL AST 20 (15-37) U/L ALT 23 (12-78) U/L Alkaline Phosphatase 74 (46-116) U/L Troponin I < 0.017 (0.000-0.056) ng/mL C-Reactive Protein 0.22 (0.0-0.3) mg/dL Total Protein 7.2 (6.4-8.2) g/dL Albumin 4.0 (3.4-5.0) g/dL Globulin 3.2 (2.3-3.5) g/dL Albumin/Globulin Ratio 1.3 (1.2-2.2) Meds: Medications Generic Name Dose Route Start Last Admin Trade Name Freq PRN Reason Stop Dose Admin Sodium Chloride 1,000 mls @ 1,000 mls/hr 12/24/17 17:21 12/24/17 17:23 Normal Saline IV 12/24/17 18:20 1,000 mls/hr .BOLUS ONE Administration Discontinued Medications Generic Name Dose Route Start Last Admin Trade Name Freq PRN Reason Stop Dose Admin Aspirin 324 mg 12/24/17 17:27 12/24/17 16:15 Aspirin PO 12/24/17 17:28 324 mg ONETIME ONE Administration Hydromorphone HCl 1 mg 12/24/17 16:32 12/24/17 16:55 Dilaudid IVPUSH 12/24/17 16:33 1 mg ONETIME ONE Administration Nitroglycerin 0.4 mg 12/24/17 17:27 12/24/17 16:20 Nitrostat SL 12/24/17 17:28 0.4 mg ONETIME ONE Administration Ondansetron HCl Confirm 12/24/17 16:29 12/24/17 17:31 Zofran Administered 12/24/17 16:30 Not Given Dose 4 mg .ROUTE .STK-MED ONE Ondansetron HCl 4 mg 12/24/17 16:46 12/24/17 16:57 Zofran IVPUSH 12/24/17 16:47 4 mg ONETIME ONE Administration - Radiology Interpretation Free Text/Narrative:: GB ultrasound-distended gallbladder, no obvious stones. Upright abdominal X-ray- Departure - Departure Time of Disposition: 18:39 Disposition: Home, Self-Care 01 Condition: Fair Clinical Impression: Epigastric abdominal pain Gastritis Qualifiers: Gastritis type: unspecified gastritis Chronicity: acute Gastritis bleeding: without bleeding Qualified Code(s): K29.00 - Acute gastritis without bleeding - Discharge Information *PRESCRIPTION DRUG MONITORING PROGRAM REVIEWED*: No *COPY OF PRESCRIPTION DRUG MONITORING REPORT IN PATIENT PHAN: No Instructions: Gastritis, Adult, [id number] Referrals: PCP,None [Primary Care Provider] - Forms: ED Department Discharge Additional Instructions: Take famotidine 20 mg daily in the evening. You may also take Maalox 30 ml after meals and at bedtime as needed. Take acetaminophen as needed for pain relief. Avoid alcohol, carbonated beverages, ibuprofen, aspirin, or Aleve. Recheck in the clinic within the week, return if worse. Use Zofran as needed for nausea control. Avoid fatty meals as this may trigger a gallbladder attack. You were found to have gastritis today, and gallbladder disease is a possibility as well. More testing or a referral may need to be made to finish the assessment of your gallbladder. - My Orders Last 24 Hours: My Active Orders 12/24/17 16:33 Cardiac Monitoring [RC] .As Directed EKG Documentation Completion [RC] ASDIRECTED EKG 12 Lead [EK] Routine 12/24/17 17:11 Abdomen Ltd [US] Stat 12/24/17 17:21 Sodium Chloride 0.9% [Normal Saline] 1,000 ml IV .BOLUS 12/24/17 17:46 Abdomen 1V Upright [CR] Stat - Assessment/Plan Last 24 Hours: My Active Orders 12/24/17 16:33 Cardiac Monitoring [RC] .As Directed EKG Documentation Completion [RC] ASDIRECTED EKG 12 Lead [EK] Routine 12/24/17 17:11 Abdomen Ltd [US] Stat 12/24/17 17:21 Sodium Chloride 0.9% [Normal Saline] 1,000 ml IV .BOLUS 12/24/17 17:46 Abdomen 1V Upright [CR] Stat
[2017-12-24] MEDS ORDERED: Ondansetron 4 MG/2 ML SDV IVPUSH ONE (16:46)
[2017-12-24] MEDS ORDERED: Sodium Chloride 0.9% 1,000 ML IV ONE (17:21)
[2017-12-24] MEDS ORDERED: Nitroglycerin 0.4 MG Tab.SL SL ONE (17:27)
[2017-12-24] MEDS ORDERED: Aspirin 81 MG Tab.Chew PO ONE (17:27)
[2017-12-24 17:58] VITALS: BP 130/65
[2017-12-24] MEDS ORDERED: Alum Hydrox/Mag Hydrox/Simeth 15 ML, Lidocaine 2% 15 ML PO ONE ×2 (18:21)
[2017-12-24] MEDS ORDERED: Ondansetron 4 MG Tab.DIS PO ONE (19:07)
--- NOTE | 2017-12-25 08:27 | CR ---
Abdomen 1V Upright CLINICAL HISTORY: Nausea and vomiting FINDINGS: The bowel gas pattern is nonobstructive. No abnormal masses are noted. No free air is seen. There has been previous lower lumbar fusion IMPRESSION: Nonacute intestinal gas pattern
== END 2017-12-24 19:16 | disposition home or self-care (01) ==
LOC: JP.ED 16:13
DX: K29.00 Acute gastritis without bleeding (principal)
CPT/HCPCS: 36415; 74018; 76705; 80053; 84484; 85027; 86140; 93005; 96361; 96374; 96375; 99285; A9270; J1170; J2405; J7030

== ENCOUNTER 2021-04-21 06:21 | Day surgery (SDC) | payer MEDICARE ==
[2021-04-21] MEDS ORDERED: Sodium Chloride 0.9% 1,000 ML IV SCH (07:15)
[2021-04-21] MEDS ORDERED: Propofol 200 MG/20 ML SDV ONE ×2 (07:15→08:05)
[2021-04-21] MEDS ORDERED: fentaNYL 100 MCG/2 ML SDV ONE (07:15)
[2021-04-21 09:20] VITALS: BP 113/65; PULSE 62
--- NOTE | 2021-04-21 09:46 | OR ---
DATE OF PROCEDURE: 04/21/2021 SURGEON: Anibal Saravia MD PROCEDURE: Colonoscopy. FINDINGS: 1. Diverticulosis, mild to moderate, mostly limited to sigmoid colon without evidence of diverticulitis or bleeding. 2. Ascending colon polyp, approximately 5 mm, completely removed using cold biopsy forceps. 3. Transverse colon polyp, approximately 5 mm, completely removed using cold biopsy forceps. 4. Sigmoid colon polyp, approximately 8 mm, completely removed using hot snare wire device. 5. Banding internal hemorrhoid. COMPLICATION: None. 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 PREOPERATIVE DIAGNOSIS: Screening colonoscopy/gastrointestinal bleeding. POSTOPERATIVE DIAGNOSIS: Screening colonoscopy/gastrointestinal bleeding. RISKS: Risks, benefits, alternatives, and limitations including, but not limited to infection, bleeding, perforation, false positives and false negatives were explained to the patient who wished to proceed. PROCEDURE IN DETAIL: The patient was placed in left lateral decubitus position. Digital exam was performed without abnormality. Scope was introduced and advanced atraumatically to the ileocecal valve. A photo was taken of the appendiceal orifice. The scope was brought back to the ascending, transverse, descending colon, and retroflexed. The aforementioned polyps were identified and completely removed. No abnormal bleeding was noted after removal. Diverticulosis described as mild to moderate, limited mostly to sigmoid colon without evidence of diverticulitis or bleeding. Greater than 8 minutes was spent removing the scope. No abnormalities on retroflexion, except for prominent hemorrhoid which was banded x1 without difficulty. The prep was acceptable, approximately 95% of the luminal surface could be seen. Anibal Saravia MD /[id number]
== END 2021-04-21 09:38 | disposition home or self-care (01) ==
LOC: JP.SDS 06:21
PROVIDERS: ATTEND Surgery
DX: D12.2 Benign neoplasm of ascending colon (principal); D12.3 Benign neoplasm of transverse colon; D12.5 Benign neoplasm of sigmoid colon; K57.30 Diverticulosis of large intestine without perforation or abscess without bleeding; K64.8 Other hemorrhoids
CPT/HCPCS: 45380; 45385; 46221; J2704; J3010; J7030

== ENCOUNTER 2022-09-28 07:25 | Day surgery (SDC) | payer MEDICARE ==
[~2022-09-28 07:25] MED LIST: Bacitracin Oint 1 GM U/D Packet ONE; Bupivacaine 0.5% 50 ML MDV ONE; Lidocaine 1% with EPINEPHrine 1:100,000 50 ML MDV ONE
[2022-09-28] MEDS ORDERED: fentaNYL 100 MCG/2 ML SDV ONE (07:52)
[2022-09-28] MEDS ORDERED: Propofol 200 MG/20 ML SDV ONE ×2 (07:53→09:26)
[2022-09-28] MEDS ORDERED: Sodium Chloride 0.9% 1,000 ML IV SCH (08:00)
[2022-09-28] MEDS ORDERED: ceFAZolin 2 GM in Premix Bag 1 BAG IV ONE (08:30)
[2022-09-28 11:09] VITALS: BP 154/81; PULSE 56
== END 2022-09-28 12:04 | disposition home or self-care (01) ==
LOC: JP.SDS 07:25
PROVIDERS: ATTEND Surgery
DX: C44.729 Squamous cell carcinoma of skin of left lower limb, including hip (principal)
CPT/HCPCS: 11606; 88305; J0690; J2704; J3010; J3490; J7030

== ENCOUNTER 2023-01-15 09:41 | Emergency (ER) | payer MEDICARE ==
[2023-01-15 10:05] VITALS: PULSE 53
[2023-01-15] MEDS ORDERED: Ketorolac 30 MG/ML SDV IM ONE (10:12)
[2023-01-15] MEDS ORDERED: fentaNYL 100 MCG/2 ML SDV IM ONE (12:03)
[2023-01-15 12:48] VITALS: BP 147/71
== END 2023-01-15 12:40 | disposition home or self-care (01) ==
LOC: JP.ED 09:41
DX: S82.032A Displaced transverse fracture of left patella, initial encounter for closed fracture (principal); Z87.891 Personal history of nicotine dependence; W01.0XXA Fall on same level from slipping, tripping and stumbling without subsequent striking against object, initial encounter
CPT/HCPCS: 73562; 96372; 99282; 99283; J1885; J3010